=== PATIENT | female | born 1965 | race Caucasian/White ===

== ENCOUNTER → 2017-02-07 | Outpatient (CLI) | payer BC ==
--- NOTE | 2017-02-07 13:18 | US ---
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 EXAM MEASUREMENTS: Right Kidney: 11.2 x 5.7 x 4.4 cm Left Kidney: 12.0 x 5.0 x 5.3 cm Post Void Residual Volume: 8.2 mL Right Kidney: No masses seen; mildly prominent renal pelvis is noted at 1.2cm A/P. Left Kidney: No hydronephrosis or masses seen Bladder: wnl Bilateral Jets seen: only right ureteral jet was seen after 3 minute observation Normal Post Void Residual: Yes IMPRESSION: 1. Prominent extrarenal pelvis on the right with no overt hydronephrosis.
== END | disposition home or self-care (01) ==
LOC: RADUSWWP 12:12
PROVIDERS: ATTEND Family Medicine
DX: E10.22 Type 1 diabetes mellitus with diabetic chronic kidney disease (principal); N18.9 Chronic kidney disease, unspecified
CPT/HCPCS: 76770

== ENCOUNTER 2017-12-15 16:21 | Inpatient (IN) | payer BC ==
[2017-12-15] MEDS ORDERED: SODIUM CHLORIDE 0.9% 1,000 ML IV STA (18:51)
[2017-12-15] MEDS ORDERED: FAMOTIDINE 20 MG/2 ML VIAL IV STA (18:52)
--- NOTE | 2017-12-15 18:58 | ED ---
Recheck HPI - General Chief Complaint: Recheck/Abnormal Lab/Rx Stated Complaint: fatique,not felling rt Time Seen by Provider: 12/15/17 18:42 Source: patient Mode of arrival: ambulatory Limitations: no limitations - History of Present Illness Initial Comments: 52-year-old female patient presents to the emergency department today with multiple complaints. Patient states that she has been feeling unwell since Friday. Patient says her symptoms include fatigue, weakness, palpitations, heartburn, and dizziness. Patient states that yesterday she was standing for a long period peeling potatoes for dinner when she became very dizzy and felt like she was going to pass out. Patient states that she has been experiencing some chest discomfort and palpitations intermittently as well. Patient denies any nausea or vomiting. Denies any fevers or chills. Patient does have a history of diabetes but states that her sugars have not been out of the ordinary. States that she is unable to stand for short periods time before she becomes too fatigued. Patient states that she has been having some intermittent numbness to the left forearm. Denies any numbness, tingling, or weakness to her legs. Sates that she has been having headaches intermittently. She denies any blurred or double vision. Patient denies any recent rash, shortness breath, chest pain, abdominal pain, back pain, hematuria, dysuria, urinary urgency, or urinary frequency. Patient is concerned because heart disease and CVA run in her family. - Related Data Home Medications Medication Instructions Recorded Confirmed Atenolol/Chlorthalidone 1 tab PO DAILY 10/15/14 12/15/17 [Atenolol-Chlorthalidone 50-25] Insulin Lispro [humaLOG] 0 units SQ ACHS 10/15/14 10/15/14 Levothyroxine Sodium [Synthroid] 200 mcg PO DAILY 10/15/14 12/15/17 Ramipril [Altace] 10 mg PO BID 10/15/14 12/15/17 amLODIPine [Norvasc] 2.5 mg PO DAILY 10/15/14 12/15/17 Atorvastatin [Lipitor] 40 mg PO DAILY 12/15/17 12/15/17 Allergies Allergy/AdvReac Type Severity Reaction Status Date / Time No Known Allergies Allergy Verified 12/15/17 19:26 Review of Systems ROS Statement: Those systems with pertinent positive or pertinent negative responses have been documented in the HPI. ROS Other: All systems not noted in ROS Statement are negative. Past Medical History Past Medical History: Diabetes Mellitus, GERD/Reflux, Hyperlipidemia, Hypertension, Thyroid Disorder History of Any Multi-Drug Resistant Organisms: MRSA Date of last positivie culture/infection: 2001 MDRO Source:: unk Past Surgical History: Section, Hysterectomy, Orthopedic Surgery, Tubal Ligation Past Psychological History: No Psychological Hx Reported Smoking Status: Former smoker Past Alcohol Use History: Occasional Past Drug Use History: None Reported General Exam Limitations: no limitations General appearance: alert, in no apparent distress, other (This is a well- developed, well-nourished adult female patient in no acute distress. Vital signs upon presentation are temperature 97.7F, pulse 65, respirations 18, blood pressure 116/69, pulse ox 100% on room air.) Eye exam: Present: normal appearance, PERRL, EOMI. Absent: scleral icterus, conjunctival injection, nystagmus, periorbital swelling ENT exam: Present: normal exam, normal oropharynx, mucous membranes moist Respiratory exam: Present: normal lung sounds bilaterally. Absent: respiratory distress, wheezes, rales, rhonchi, stridor Cardiovascular Exam: Present: regular rate, normal rhythm, normal heart sounds. Absent: systolic murmur, diastolic murmur, rubs, gallop, clicks GI/Abdominal exam: Present: soft, normal bowel sounds. Absent: distended, tenderness, guarding, rebound, rigid Neurological exam: Present: alert, oriented X3, CN II-XII intact Psychiatric exam: Present: normal affect, normal mood Skin exam: Present: warm, dry, intact, normal color. Absent: rash Course Vital Signs 12/15/17 12/15/17 12/15/17 17:49 19:14 20:51 Temperature 97.7 F Pulse Rate 65 63 52 L Pulse Rate [ Right Sitting Hospital Nurse ] Pulse Rate [ Right Standing Hospital Nurse ] Pulse Rate [ Right Supine Hospital Nurse ] Respiratory 18 18 18 Rate Blood Pressure 116/69 134/63 143/97 Blood Pressure [Right Arm Sitting] Blood Pressure [Right Arm Standing] Blood Pressure [Right Arm Supine] O2 Sat by Pulse 100 100 98 Oximetry 12/15/17 20:55 Temperature Pulse Rate Pulse Rate [ 67 Right Sitting Hospital Nurse ] Pulse Rate [ 65 Right Standing Hospital Nurse ] Pulse Rate [ 64 Right Supine Hospital Nurse ] Respiratory Rate Blood Pressure Blood Pressure 131/70 [Right Arm Sitting] Blood Pressure 107/57 [Right Arm Standing] Blood Pressure 184/80 [Right Arm Supine] O2 Sat by Pulse Oximetry Medical Decision Making - Medical Decision Making 52-year-old female patient presented to the emergency department today for evaluation of weakness, fatigue, palpitations, and did have a near syncopal episode yesterday. The patient physical exam is unremarkable. She was neurologically intact. Labs reviewed and did reveal elevated BUN and creatinine , we are unaware of the patient's baseline, we did speak to her primary care physician who believes that her creatinine is more elevated than it usually is. While in the department patient did have bradycardic episodes down into the high 30s. Patient has a symptomatic at this time however given her symptoms over the last several days we feel it would be beneficial for her to have cardiac evaluation and monitoring. My attending Dr. Man did speak to her primary care physician Dr. Handy who agrees to admission. We will consult cardiology. - Lab Data Result diagrams: 12/15/17 18:59 12/15/17 18:59 Lab Results 12/15/17 12/15/17 12/15/17 Range/Units 18:59 18:59 18:59 WBC 8.5 (3.8-10.6) k/uL RBC 4.07 (3.80-5.40) m/uL Hgb 12.9 (11.4-16.0) gm/dL Hct 36.7 (34.0-46.0) % MCV 90.1 (80.0-100.0) fL MCH 31.7 (25.0-35.0) pg MCHC 35.2 (31.0-37.0) g/dL RDW 11.8 (11.5-15.5) % Plt Count 254 (150-450) k/uL Neutrophils % 66 % Lymphocytes % 25 % Monocytes % 5 % Eosinophils % 2 % Basophils % 1 % Neutrophils # 5.7 (1.3-7.7) k/uL Lymphocytes # 2.1 (1.0-4.8) k/uL Monocytes # 0.4 (0-1.0) k/uL Eosinophils # 0.2 (0-0.7) k/uL Basophils # 0.0 (0-0.2) k/uL PT (9.0-12.0) sec INR (<1.2) APTT (22.0-30.0) sec Sodium 137 (137-145) mmol/L Potassium 4.6 (3.5-5.1) mmol/L Chloride 99 (98-107) mmol/L Carbon Dioxide 24 (22-30) mmol/L Anion Gap 14 mmol/L BUN 64 H (7-17) mg/dL Creatinine 2.16 H (0.52-1.04) mg/dL Est GFR (CKD-EPI)AfAm 30 (>60 ml/min/1.73 sqM) Est GFR (CKD-EPI)NonAf 26 (>60 ml/min/1.73 sqM) Glucose 176 H (74-99) mg/dL Calcium 9.7 (8.4-10.2) mg/dL Magnesium 2.2 (1.6-2.3) mg/dL Total Bilirubin 0.3 (0.2-1.3) mg/dL AST 19 (14-36) U/L ALT 26 (9-52) U/L Alkaline Phosphatase 70 (38-126) U/L Total Creatine Kinase 123 (30-135) U/L CK-MB (CK-2) 5.1 H (0.0-2.4) ng/mL CK-MB (CK-2) Rel Index 4.1 Troponin I <0.012 (0.000-0.034) ng/mL Total Protein 7.2 (6.3-8.2) g/dL Albumin 4.0 (3.5-5.0) g/dL TSH 2.020 (0.465-4.680) mIU/L Urine Color Urine Appearance (Clear) Urine pH (5.0-8.0) Ur Specific [place] (1.001-1.035) Urine Protein (Negative) Urine Glucose (UA) (Negative) Urine Ketones (Negative) Urine Blood (Negative) Urine Nitrite (Negative) Urine Bilirubin (Negative) Urine Urobilinogen (<2.0) mg/dL Ur Leukocyte Esterase (Negative) Urine WBC (0-5) /hpf Ur Squamous Epith Cells (0-4) /hpf Urine Mucus (None) /hpf 12/15/17 12/15/17 Range/Units 18:59 18:59 WBC (3.8-10.6) k/uL RBC (3.80-5.40) m/uL Hgb (11.4-16.0) gm/dL Hct (34.0-46.0) % MCV (80.0-100.0) fL MCH (25.0-35.0) pg MCHC (31.0-37.0) g/dL RDW (11.5-15.5) % Plt Count (150-450) k/uL Neutrophils % % Lymphocytes % % Monocytes % % Eosinophils % % Basophils % % Neutrophils # (1.3-7.7) k/uL Lymphocytes # (1.0-4.8) k/uL Monocytes # (0-1.0) k/uL Eosinophils # (0-0.7) k/uL Basophils # (0-0.2) k/uL PT 9.4 (9.0-12.0) sec INR 0.9 (<1.2) APTT 22.3 (22.0-30.0) sec Sodium (137-145) mmol/L Potassium (3.5-5.1) mmol/L Chloride (98-107) mmol/L Carbon Dioxide (22-30) mmol/L Anion Gap mmol/L BUN (7-17) mg/dL Creatinine (0.52-1.04) mg/dL Est GFR (CKD-EPI)AfAm (>60 ml/min/1.73 sqM) Est GFR (CKD-EPI)NonAf (>60 ml/min/1.73 sqM) Glucose (74-99) mg/dL Calcium (8.4-10.2) mg/dL Magnesium (1.6-2.3) mg/dL Total Bilirubin (0.2-1.3) mg/dL AST (14-36) U/L ALT (9-52) U/L Alkaline Phosphatase (38-126) U/L Total Creatine Kinase (30-135) U/L CK-MB (CK-2) (0.0-2.4) ng/mL CK-MB (CK-2) Rel Index Troponin I (0.000-0.034) ng/mL Total Protein (6.3-8.2) g/dL Albumin (3.5-5.0) g/dL TSH (0.465-4.680) mIU/L Urine Color Light Yellow Urine Appearance Cloudy H (Clear) Urine pH 5.0 (5.0-8.0) Ur Specific [place] 1.007 (1.001-1.035) Urine Protein Negative (Negative) Urine Glucose (UA) Negative (Negative) Urine Ketones Negative (Negative) Urine Blood Negative (Negative) Urine Nitrite Negative (Negative) Urine Bilirubin Negative (Negative) Urine Urobilinogen <2.0 (<2.0) mg/dL Ur Leukocyte Esterase Negative (Negative) Urine WBC 1 (0-5) /hpf Ur Squamous Epith Cells 4 (0-4) /hpf Urine Mucus Rare H (None) /hpf - EKG Data -: EKG Interpreted by Me EKG Comments: EKG obtained at 1806 shows normal sinus rhythm with a ventricular rate of 64, MI interval 170, QRS duration 84, QT 438, QTC 451. No evidence of ST elevation or depression. - Radiology Data Radiology results: report reviewed, image reviewed Two-view x-ray of the chest was obtained. Heart media's enema normal. Lungs are clear. Diaphragm is normal. Bony thorax is intact. Impression by Dr. Ham shows normal chest with no change. Disposition Clinical Impression: Bradycardia, Acute kidney injury, Weakness Disposition: ADMITTED IP TO THIS [facility] Condition: Serious Referrals: Daryl Handy MD [Primary Care Provider] - 1-2 days Decision to Admit Reason: Admit from EC Decision Date: 12/15/17 Decision Time: 21:36
[2017-12-15 19:31] LABS: Basophils % (A) 1 %; Eosinophils # (A) 0.2 k/uL (0-0.7); Eosinophils % (A) 2 %; HCT 36.7 % (34.0-46.0); HGB 12.9 gm/dL (11.4-16.0); Lymphocytes # (A) 2.1 k/uL (1.0-4.8); Lymphocytes % (A) 25 %; MCH 31.7 pg (25.0-35.0); MCHC 35.2 g/dL (31.0-37.0); MCV 90.1 fL (80.0-100.0); Mean Platelet Volume 7.4; Monocytes # (A) 0.4 k/uL (0-1.0); Monocytes % (A) 5 %; Neutrophils # (A) 5.7 k/uL (1.3-7.7); Neutrophils % (A) 66 %; Platelet Count 254 k/uL (150-450); RBC 4.07 m/uL (3.80-5.40); RDW 11.8 % (11.5-15.5); WBC 8.5 k/uL (3.8-10.6)
[2017-12-15 19:33] LABS: Appearance,Urine Cloudy (Clear); Bilirubin,Urine Negative (Negative); Blood,Urine Negative (Negative); Color,Urine Light Yellow; Glucose,Urine (UA) Negative (Negative); Ketones,Urine Negative (Negative); Leukocyte Esterase,Urine Negative (Negative); Mucus,Urine Rare /hpf; Nitrite,Urine Negative (Negative); Protein,Urine Negative (Negative); Specific Gravity,Urine 1.007 (1.001-1.035); Squamous Epithelial Cell,Urine 4 /hpf (0-4); Urobilinogen,Urine <2.0 mg/dL (<2.0); WBC,Urine 1 /hpf (0-5)
[2017-12-15 19:38] LABS: Calcium 9.7 mg/dL (8.4-10.2); Magnesium 2.2 mg/dL (1.6-2.3); Potassium 4.6 mmol/L (3.5-5.1); Total Bilirubin 0.3 mg/dL (0.2-1.3); Total Protein 7.2 g/dL (6.3-8.2)
[2017-12-15 19:42] LABS: Creatine Kinase 123 U/L (30-135)
[2017-12-15 19:56] LABS: Creatine Kinase MB 5.1 ng/mL (0.0-2.4); Troponin I <0.012 ng/mL (0.000-0.034)
--- NOTE | 2017-12-15 19:58 | XR ---
EXAMINATION TYPE: XR chest 2V DATE OF EXAM: 12/15/2017 COMPARISON: 01/31/2009 HISTORY: Chest pain TECHNIQUE: Frontal and lateral views of the chest are obtained. FINDINGS: Heart and mediastinum are normal. Lungs are clear. Diaphragm is normal. Bony thorax is int act. IMPRESSION: Normal chest. No change.
[2017-12-15 20:02] LABS: INR 0.9 (<1.2); Partial Thromboplastin Time 22.3 sec (22.0-30.0); Prothrombin Time 9.4 sec (9.0-12.0)
[2017-12-15] MEDS ORDERED: NALOXONE 0.4 MG/ML 1 ML VIAL IV PRN (21:24)
[2017-12-15] MEDS: SODIUM CHLORIDE 0.9% 1,000 ML IV SCH (21:56)
[2017-12-15 22:55] LABS: Glucose,Whole Blood 231 mg/dL (75-99)
[2017-12-16 06:03] LABS: Basophils % (A) 0 %; Eosinophils # (A) 0.1 k/uL (0-0.7); Eosinophils % (A) 3 %; HCT 34.4 % (34.0-46.0); HGB 11.3 gm/dL (11.4-16.0); Lymphocytes # (A) 1.6 k/uL (1.0-4.8); Lymphocytes % (A) 29 %; MCH 30.7 pg (25.0-35.0); MCV 92.8 fL (80.0-100.0); Mean Platelet Volume 7.2; Monocytes # (A) 0.3 k/uL (0-1.0); Monocytes % (A) 5 %; Neutrophils # (A) 3.4 k/uL (1.3-7.7); Neutrophils % (A) 61 %; Platelet Count 214 k/uL (150-450); WBC 5.6 k/uL (3.8-10.6)
[2017-12-16 06:09] LABS: Glucose,Whole Blood 386 mg/dL (75-99)
[2017-12-16 06:12] LABS: Calcium 8.9 mg/dL (8.4-10.2); Potassium 4.7 mmol/L (3.5-5.1)
--- NOTE | 2017-12-16 09:22 | P.HPIM ---
History of Present Illness 52-year-old female diabetic presented to the emergency room with complaints of fatigue neck pain chest pain speech impediment left arm weakness nurse syncopal episode with left leg weakness. In the emergency room patient was found to have bradycardia down to rate 30. Patient also has history of hypertension and hyperlipidemia hypothyroidism Review of Systems Constitutional: Reports fatigue, Reports weakness Cardiovascular: Reports chest pain Gastrointestinal: Reports heartburn Musculoskeletal: Reports muscle weakness, Reports neck pain Neurological: Reports change in speech, Reports gait dysfunction, Reports tingling, Reports weakness Past Medical History Past Medical History: Diabetes Mellitus, GERD/Reflux, Hyperlipidemia, Hypertension, Thyroid Disorder History of Any Multi-Drug Resistant Organisms: MRSA Date of last positivie culture/infection: 2001 MDRO Source:: unk Past Surgical History: Section, Hysterectomy, Orthopedic Surgery, Tubal Ligation Past Psychological History: No Psychological Hx Reported Smoking Status: Former smoker Past Alcohol Use History: Occasional Past Drug Use History: None Reported - Past Family History Mother Family Medical History: Myocardial Infarction ([place]) Father Family Medical History: Myocardial Infarction ([place]) Medications and Allergies Home Medications Medication Instructions Recorded Confirmed Type Atenolol/Chlorthalidone 1 tab PO DAILY 10/15/14 12/15/17 History [Atenolol-Chlorthalidone 50-25] Insulin Lispro [humaLOG] 0 units SQ ACHS 10/15/14 10/15/14 History Levothyroxine Sodium [Synthroid] 200 mcg PO DAILY 10/15/14 12/15/17 History Ramipril [Altace] 10 mg PO BID 10/15/14 12/15/17 History amLODIPine [Norvasc] 2.5 mg PO DAILY 10/15/14 12/15/17 History Atorvastatin [Lipitor] 40 mg PO DAILY 12/15/17 12/15/17 History Allergies Allergy/AdvReac Type Severity Reaction Status Date / Time No Known Allergies Allergy Verified 12/15/17 19:26 Physical Exam Vitals: Vital Signs Temp Pulse Pulse Pulse Pulse Resp BP 12/16/17 04:00 97.6 F 73 18 12/16/17 00:00 97.8 F 62 71 18 12/15/17 21:55 97.2 F L 69 18 12/15/17 21:37 68 18 117/59 12/15/17 20:55 67 65 64 09/24/18 20:51 52 L 18 143/97 12/15/17 19:14 63 18 134/63 12/15/17 17:49 97.7 F 65 18 116/69 BP BP BP Pulse Ox 12/16/17 04:00 131/65 98 12/16/17 00:00 112/75 97 12/15/17 21:55 152/79 98 12/15/17 21:37 100 12/15/17 20:55 131/70 107/57 184/80 12/15/17 20:51 98 12/15/17 19:14 100 12/15/17 17:49 100 Intake and Output 12/15/17 12/16/17 12/16/17 22:59 06:59 14:59 Intake Total 750 Balance 750 Intake: Intake, IV Titration 750 Amount Sodium Chloride 0.9% 1, 750 000 ml @ 75 mls/hr IV . [id number] [facility] Rx#:[id number] Other: # Voids 1 Weight 90.256 kg 89.8 kg - Constitutional General appearance: mild distress - EENT Eyes: PERRLA ENT: normal oropharynx Ears: bilateral: normal - Neck Neck: normal ROM - Respiratory Respiratory: bilateral: CTA - Cardiovascular Rhythm: regular - Gastrointestinal General gastrointestinal: soft - Integumentary Integumentary: normal - Neurologic Neurologic: CNII-XII intact - Musculoskeletal Musculoskeletal: strength equal bilaterally - Psychiatric Psychiatric: A&O x's 3, appropriate affect, intact judgment & insight Results CBC & Chem 7: 12/16/17 05:39 12/16/17 05:39 Labs: Abnormal Lab Results - Last 24 Hours (Table) 12/15/17 12/15/17 12/15/17 Range/Units 18:59 18:59 18:59 RBC (3.80-5.40) m/uL Hgb (11.4-16.0) gm/dL Sodium (137-145) mmol/L BUN 64 H (7-17) mg/dL Creatinine 2.16 H (0.52-1.04) mg/dL Glucose 176 H (74-99) mg/dL POC Glucose (mg/dL) (75-99) mg/dL CK-MB (CK-2) 5.1 H (0.0-2.4) ng/mL Urine Appearance Cloudy H (Clear) Urine Mucus Rare H (None) /hpf 12/15/17 12/16/17 12/16/17 Range/Units 22:53 05:39 05:39 RBC 3.70 L (3.80-5.40) m/uL Hgb 11.3 L (11.4-16.0) gm/dL Sodium 134 L (137-145) mmol/L BUN 53 H (7-17) mg/dL Creatinine 1.49 H (0.52-1.04) mg/dL Glucose 341 H (74-99) mg/dL POC Glucose (mg/dL) 231 H (75-99) mg/dL CK-MB (CK-2) (0.0-2.4) ng/mL Urine Appearance (Clear) Urine Mucus (None) /hpf 12/16/17 Range/Units 06:07 RBC (3.80-5.40) m/uL Hgb (11.4-16.0) gm/dL Sodium (137-145) mmol/L BUN (7-17) mg/dL Creatinine (0.52-1.04) mg/dL Glucose (74-99) mg/dL POC Glucose (mg/dL) 386 H (75-99) mg/dL CK-MB (CK-2) (0.0-2.4) ng/mL Urine Appearance (Clear) Urine Mucus (None) /hpf Chest x-ray: report reviewed Thrombosis Risk Factor Assmnt - Choose All That Apply Each Factor Represents 1 point: Age 41-60 years, Obesity (BMI >25) Other congenital or acquired thrombophilia - If yes, enter type in comment: No Thrombosis Risk Factor Assessment Total Risk Factor Score: 2 Thrombosis Risk Factor Assessment Level: Low Risk Assessment and Plan Plan: Assessment Diabetes on insulin pump Bradycardia rate down to 30 Acute kidney injury improving Left arm leg weakness TIA Hypertension hyperlipidemia GERD Plan Consultation with cardiology for bradycardia Dr. Beebe for acute kidney injury Neurology for possible TIA CT of the brain ordered
[2017-12-16] MEDS ORDERED: INSULIN PUMP BASAL RATES 1 EACH MISC MISCELLANE PRN (09:43)
[2017-12-16] MEDS ORDERED: INSULIN ASPART 100 UNIT/ML 1 ML 10 ML VIAL SQ PRN (09:43)
[2017-12-16] MEDS ORDERED: INSPUCOR MISCELLANE PRN (09:43)
[2017-12-16] MEDS ORDERED: INSULIN PUMP TARGET GLUCOSE 1 EACH MISC MISCELLANE PRN (09:43)
[2017-12-16] MEDS ORDERED: INSULIN PUMP ACTIVE INSULIN 1 EACH MISC MISCELLANE PRN (09:43)
[2017-12-16] MEDS ORDERED: CHLORTHALIDONE 25 MG TAB PO SCH (10:00)
[2017-12-16] MEDS: SODIUM CHLORIDE 0.9% 1,000 ML IV SCH (10:22)
--- NOTE | 2017-12-16 10:33 | P.NPCON ---
History of Present Illness - Reason for Consult acute renal failure - History of Present Illness Reason for consultation: Acute kidney injury History of present illness: Patient is a 52-year-old female seen in consultation for acute kidney injury. Her creatinine was 2.16 on admission and is on the 1.49 today. She did receive a 1 L normal saline bolus and is now maintained on normal saline at 75 mL an hour. Vision denies use of NSAIDs. Patient states she was at home yesterday cooking food and felt weak and dizzy. She also had palpitations which prompted her to come to the hospital. Patient has history of diabetes mellitus diagnosed over 30 years ago. She was also taking an SHAYY inhibitor, beta luis as well as a thiazide diuretic for blood pressure control. She denies any vomiting or diarrhea. No edema. Denies any history of cardiac disease. Oral intake is good. Denies any active chest pain or shortness of breath. Urinalysis is benign. No fever or chills. Denies edema. Denies family history of renal disease. Vital signs are stable. General: The patient appeared well nourished and normally developed. HEENT: Head exam is unremarkable. Neck is without jugular venous distension. LUNGS: Lungs are clear to auscultation and percussion. Breath sounds decreased. HEART: Rate and Rhythm are regular. First and second heart sounds normal. No murmurs, rubs or gallops. ABDOMEN: Abdominal exam reveals normal bowel sounds. Non-tender and non- distended. No evidence of peritonitis. EXTREMITITES: No clubbing, cyanosis, or edema. Past Medical History Past Medical History: Diabetes Mellitus, GERD/Reflux, Hyperlipidemia, Hypertension, Thyroid Disorder History of Any Multi-Drug Resistant Organisms: MRSA Date of last positivie culture/infection: 2001 MDRO Source:: k Past Surgical History: Section, Hysterectomy, Orthopedic Surgery, Tubal Ligation Past Psychological History: No Psychological Hx Reported Smoking Status: Former smoker Past Alcohol Use History: Occasional Past Drug Use History: None Reported - Past Family History Mother Family Medical History: Myocardial Infarction ([place]) Father Family Medical History: Myocardial Infarction ([place]) Medications and Allergies Home Medications Medication Instructions Recorded Confirmed Type Atenolol/Chlorthalidone 1 tab PO DAILY 10/15/14 12/15/17 History [Atenolol-Chlorthalidone 50-25] Insulin Lispro [humaLOG] 0 units SQ ACHS 10/15/14 10/15/14 History Levothyroxine Sodium [Synthroid] 200 mcg PO DAILY 10/15/14 12/15/17 History Ramipril [Altace] 10 mg PO BID 10/15/14 12/15/17 History amLODIPine [Norvasc] 2.5 mg PO DAILY 10/15/14 12/15/17 History Atorvastatin [Lipitor] 40 mg PO DAILY 12/15/17 12/15/17 History Allergies Allergy/AdvReac Type Severity Reaction Status Date / Time No Known Allergies Allergy Verified 12/15/17 19:26 Physical Exam Vitals: Vital Signs Temp Pulse Pulse Pulse Pulse Resp BP 12/16/17 04:00 97.6 F 73 18 12/16/17 00:00 97.8 F 62 71 18 12/15/17 21:55 97.2 F L 69 18 12/15/17 21:37 68 18 117/59 12/15/17 20:55 67 65 64 12/15/17 20:51 52 L 18 143/97 12/15/17 19:14 63 18 134/63 12/15/17 17:49 97.7 F 65 18 116/69 BP BP BP Pulse Ox 12/16/17 04:00 131/65 98 12/16/17 00:00 112/75 97 12/15/17 21:55 152/79 98 12/15/17 21:37 100 12/15/17 20:55 131/70 107/57 184/80 12/15/17 20:51 98 12/15/17 19:14 100 12/15/17 17:49 100 Intake and Output 12/15/17 12/16/17 12/16/17 22:59 06:59 14:59 Intake Total 750 Balance 750 Intake: Intake, IV Titration 750 Amount Sodium Chloride 0.9% 1, 750 000 ml @ 75 mls/hr IV . [id number] [facility] Rx#:[id number] Other: # Voids 1 Weight 90.256 kg 89.8 kg Results - Lab Results Most recent lab results Calcium 8.9 mg/dL (8.4-10.2) 12/16/17 05:39 Magnesium 2.2 mg/dL (1.6-2.3) 12/15/17 18:59 12/16/17 05:39 12/16/17 05:39 Assessment and Plan Plan: Assessment: 1. Nonoliguric acute kidney injury mostly prerenal improving with IV hydration. Creatinine was 2.16 on admission and is down to 1.49 today. Urinalysis is benign. 2. Benign hypertension. Controlled. 3. Insulin-dependent diabetes mellitus diagnosed over 30 years ago. 4. Mild hyponatremia secondary to acute kidney injury and thiazide diuretic. Plan: Continue normal saline at 75 mL an hour. Hold chlorthalidone and SHAYY inhibitor for now. Encouraged oral intake. Avoid nephrotoxins. Repeat electrolytes in the morning. Patient complained of lower extremity numbness on admission and is scheduled for CAT scan today. Thank you for the consultation. I will continue to follow the patient with you during her hospital stay.
[2017-12-16 10:41] LABS: Glucose,Whole Blood 419 mg/dL (75-99)
--- NOTE | 2017-12-16 11:03 | CT ---
EXAMINATION TYPE: CT brain cspine wo con DATE OF EXAM: 12/16/2017 COMPARISON: CT brain November 23, 2014 HISTORY: Left arm weakness. Syncope. CT DLP: 1603 mGycm. Automated Exposure Control for Dose Reduction was Utilized. TECHNIQUE: CT scan of the head and cervical spine are performed without contrast. FINDINGS: There is no acute intracranial hemorrhage, mass effect, or midline shift identified. The ventricles and sulci are within normal limits in size. Kaur-white matter differentiation is maintai randal. The globes are intact and the visualized sinuses are clear. Nasal septum remains deviated to lef t of midline. No suspicious new opacification of mastoid air cells is seen. Cervical spine is visualized in its entirety from C1 through upper thoracic levels and demonstrates s traightened alignment without evidence of acute fracture or dislocation. Prevertebral soft tissue ap pears within normal limits. The C1-C2 articulation is within normal limits on the coronal images. V ertebral body heights and disc space heights are maintained. No large posterior disc herniations are seen on sagittal images. Review of axial images shows right-sided uncovertebral facet degenerative changes causing mild right- sided neural foraminal narrowing at C3-C4 level. There is small posterior disc herniation mildly effa cing anterior thecal sac at C5-C6 level on axial image 48. Lung apices are clear. Visualized thyroid gland is small in size. IMPRESSION: 1. Straightening of cervical spine without large disc herniation seen to account for left arm weaknes s. 2. No acute intracranial hemorrhage or midline shift is seen. No significant change from prior CT.
[2017-12-16 11:48] LABS: Glucose,Whole Blood 469 mg/dL (75-99)
[2017-12-16] MEDS: LEVOTHYROXINE 100 MCG TAB PO SCH (12:58)
[2017-12-16] MEDS: ATENOLOL 50 MG TAB PO SCH (12:59)
[2017-12-16] MEDS: amLODIPine 2.5 MG TAB PO SCH (12:59)
[2017-12-16] MEDS: INSULIN PUMP MEAL BOLUS 1 UNIT MISC MISCELLANE SCH ×3 (13:01→21:54)
[2017-12-16] MEDS: INSULIN ASPART 100 UNIT/ML 1 ML 10 ML VIAL SQ SCH ×2 (13:47→17:11)
--- NOTE | 2017-12-16 14:08 | P.CRDCN ---
<Ayanna Andrews E - Last Filed: 12/16/17 13:54> History of Present Illness Consult date: 12/16/17 Requesting physician: Daryl Handy Consult reason: chest pain Chief complaint: Fatigue, dizziness, heartburn History of present illness: This is a pleasant 52-year-old female with history of diabetes, hypertension, hyperlipidemia, hypothyroidism, prior history of smoking, who presented to the hospital mainly with symptoms of fatigue, dizziness, and intermittent heartburn. Patient states since Friday of last week she generally has not been feeling well. She has been getting repeated symptoms of heartburn unrelieved with medication that she takes occasionally for heartburn, she's also been getting symptoms where she feels extremely fatigued, in her arms in general, and patient states she's been experiencing intermittent dizziness. For these reasons, because of its persistence she came to the hospital for further evaluation. Blood pressure on arrival here 116/60 with a heart rate in the 60s, 100% on room air. Orthostatic blood pressures were obtained, 184/80 lying, 130/70 sitting, 107/57 standing, patient is afebrile, blood pressure currently 130/60, 98% on room air. White blood cell count is normal, hemoglobin 11.3, platelet count 214. Sodium 134, potassium 4.7, BUN 53, creatinine 1.4 BUN on admission was 64 and creatinine 2.1. Glucose levels have also been fluctuating, 231 yesterday, 469 today. Troponin is negative times one. According to the patient, she has been drinking significant amount of water at home, she denies any use of nonsteroidal anti-inflammatories, no episodes of diarrhea or vomiting. She is known to have issues with her kidneys in the past. Patient was also on chlorthalidone an SHAYY inhibitor at home. These have been placed on hold. Patient was hydrated, and her kidney function improved. Overall she does state that she feels better today. Past Medical History Past Medical History: Diabetes Mellitus, GERD/Reflux, Hyperlipidemia, Hypertension, Thyroid Disorder History of Any Multi-Drug Resistant Organisms: MRSA Date of last positivie culture/infection: 2001 MDRO Source:: unk Past Surgical History: Section, Hysterectomy, Orthopedic Surgery, Tubal Ligation Past Psychological History: No Psychological Hx Reported Smoking Status: Former smoker Past Alcohol Use History: Occasional Past Drug Use History: None Reported - Past Family History Mother Family Medical History: Myocardial Infarction ([place]) Father Family Medical History: Myocardial Infarction ([place]) Medications and Allergies Home Medications Medication Instructions Recorded Confirmed Type Atenolol/Chlorthalidone 1 tab PO DAILY 10/15/14 12/15/17 History [Atenolol-Chlorthalidone 50-25] Insulin Lispro [humaLOG] 0 units SQ ACHS 10/15/14 10/15/14 History Levothyroxine Sodium [Synthroid] 200 mcg PO DAILY 10/15/14 12/15/17 History Ramipril [Altace] 10 mg PO BID 10/15/14 12/15/17 History amLODIPine [Norvasc] 2.5 mg PO DAILY 10/15/14 12/15/17 History Atorvastatin [Lipitor] 40 mg PO DAILY 12/15/17 12/15/17 History Allergies Allergy/AdvReac Type Severity Reaction Status Date / Time No Known Allergies Allergy Verified 12/15/17 19:26 Physical Exam Vitals: Vital Signs Temp Pulse Pulse Pulse Pulse Resp BP 12/16/17 04:00 97.6 F 73 18 12/16/17 00:00 97.8 F 62 71 18 12/15/17 21:55 97.2 F L 69 18 12/15/17 21:37 68 18 117/59 12/15/17 20:55 67 65 64 12/15/17 20:51 52 L 18 143/97 12/15/17 19:14 63 18 134/63 12/15/17 17:49 97.7 F 65 18 116/69 BP BP BP Pulse Ox 12/16/17 04:00 131/65 98 12/16/17 00:00 112/75 97 12/15/17 21:55 152/79 98 12/15/17 21:37 100 12/15/17 20:55 131/70 107/57 184/80 12/15/17 20:51 98 12/15/17 19:14 100 12/15/17 17:49 100 Intake and Output 12/15/17 12/16/17 12/16/17 22:59 06:59 14:59 Intake Total 750 450 Balance 750 450 Intake: Intake, IV Titration 750 450 Amount Sodium Chloride 0.9% 1, 750 450 000 ml @ 75 mls/hr IV . [id number] [facility] Rx#:[id number] Other: # Voids 1 Weight 90.256 kg 89.8 kg PHYSICAL EXAMINATION: GENERAL: 52-year-old female in no acute distress at the time of my examination HEENT: Head is atraumatic, normocephalic. Pupils equal, round. Sclera anicteric. Conjunctiva are clear. Mucous membranes of the mouth are moist. Neck is supple. There is no elevated jugular venous pressure. No carotid bruit is heard. HEART EXAMINATION: Heart S1, S2 normal. No murmur or gallop heard. CHEST EXAMINATION: Lungs are clear to auscultation and precussion. No chest wall tenderness is noted on palpation or with deep breathing. ABDOMEN: Soft, nontender. Bowel sounds are heard. No organomegaly noted. EXTREMITIES: 2+ peripheral pulses with no evidence of peripheral edema and no calf tenderness noted. NEUROLOGIC patient is awake, alert and oriented ?-3. . Results 12/16/17 05:39 12/16/17 05:39 Cardiac Enzymes 12/15/17 12/15/17 Range/Units 18:59 18:59 AST 19 (14-36) U/L CK-MB (CK-2) 5.1 H (0.0-2.4) ng/mL Troponin I <0.012 (0.000-0.034) ng/mL Coagulation 12/15/17 Range/Units 18:59 PT 9.4 (9.0-12.0) sec APTT 22.3 (22.0-30.0) sec CBC 12/15/17 12/16/17 Range/Units 18:59 05:39 WBC 8.5 5.6 (3.8-10.6) k/uL RBC 4.07 3.70 L (3.80-5.40) m/uL Hgb 12.9 11.3 L (11.4-16.0) gm/dL Hct 36.7 34.4 (34.0-46.0) % Plt Count 254 214 (150-450) k/uL Comprehensive Metabolic Panel 12/15/17 12/16/17 Range/Units 18:59 05:39 Sodium 137 134 L (137-145) mmol/L Potassium 4.6 4.7 (3.5-5.1) mmol/L Chloride 99 103 (98-107) mmol/L Carbon Dioxide 24 22 (22-30) mmol/L BUN 64 H 53 H (7-17) mg/dL Creatinine 2.16 H 1.49 H (0.52-1.04) mg/dL Glucose 176 H 341 H (74-99) mg/dL Calcium 9.7 8.9 (8.4-10.2) mg/dL AST 19 (14-36) U/L ALT 26 (9-52) U/L Alkaline Phosphatase 70 (38-126) U/L Total Protein 7.2 (6.3-8.2) g/dL Albumin 4.0 (3.5-5.0) g/dL Current Medications Generic Name Dose Route Start Last Admin Trade Name Freq PRN Reason Stop Dose Admin Amlodipine Besylate 2.5 mg 12/16/17 09:30 12/16/17 12:59 Norvasc PO 2.5 mg DAILY [facility] Administration Atenolol 50 mg 12/16/17 10:00 12/16/17 12:59 Tenormin PO 50 mg DAILY [facility] Administration Sodium Chloride 1,000 mls @ 75 mls/hr 12/15/17 21:30 12/16/17 10:22 Saline 0.9% IV 75 mls/hr .[id number] [facility] Administration Insulin Aspart 0 unit 12/16/17 09:43 Novolog SQ DAILY PRN Insulin Pump Replacement Insulin Aspart 0 unit 12/16/17 14:00 Novolog SQ ACHS [facility] Protocol Levothyroxine Sodium 200 mcg 12/16/17 10:00 12/16/17 12:58 Synthroid PO 200 mcg 0630 [facility] Administration Miscellaneous Information 1 each 12/16/17 09:43 Insulin Pump Active Insulin MISCELLANE ACHS PRN Blood Sugar - High Protocol Miscellaneous Information 1 each 12/16/17 09:43 Insulin Pump Basal Rates MISCELLANE Q6HR PRN Blood Sugar - High Protocol Miscellaneous Information 0 unit 12/16/17 09:43 Insulin Pump Correction Bolus MISCELLANE ACHS PRN Blood Sugar - High Protocol Miscellaneous Information 0 unit 12/16/17 12:30 12/16/17 13:01 Insulin Pump Meal Bolus MISCELLANE 8 unit ACHS [facility] Administration Protocol Miscellaneous Information 1 each 12/16/17 09:43 Insulin Pump Target Glucose MISCELLANE ACHS PRN Blood Sugar - High Protocol Naloxone HCl 0.2 mg 12/15/17 21:24 Narcan IV Q2M PRN Opioid Reversal Intake and Output 12/15/17 12/16/17 12/16/17 22:59 06:59 14:59 Intake Total 750 450 Balance 750 450 Intake: Intake, IV Titration 750 450 Amount Sodium Chloride 0.9% 1, 750 450 000 ml @ 75 mls/hr IV . [id number] [facility] Rx#:[id number] Other: # Voids 1 Weight 90.256 kg 89.8 kg 12/16/17 05:39 12/16/17 05:39 EKG Interpretations (text) EKG shows a normal sinus rhythm with no acute changes. Assessment and Plan Plan: Assessment and plan #1 symptoms of generalized malaise, fatigue, and intermittent heartburn. One troponin is negative. EKG shows normal sinus rhythm with no acute changes. #2 non-oliguric acute kidney injury, improving with IV hydration, creatinine 2.1 on admission, 1.4 today. #3 diabetes #4 hyperlipidemia #5 mild hyponatremia secondary to acute kidney injury Plan We will obtain an echocardiogram with Doppler study. Continue normal saline at 75 mL per hour. Chlorthalidone and SHAYY inhibitor continue to be on hold. We will avoid nephrotoxins. Patient is also been recommended to undergo a Lexiscan stress test tomorrow because of the symptoms of intermittent burning in the chest. Further recommendations to follow. DNP note has been reviewed, I agree with a documented findings and plan of care. Patient was seen and examined. <Fransisco Wells - Last Filed: 12/17/17 12:41> History of Present Illness History of present illness: Patient interviewed and examined by me Patient complaining of midsternal chest discomfort with radiation down the left forearm and a vague sensation in the tongue This occurred in the setting of acute worsening of renal function/uremia No pericardial rub Renal function improving Diabetic for 30 years on insulin, hypertension, strong family history of coronary artery disease in the female members of her family at an early age No evidence for acute myocardial injury I would hold off any stress testing stating today. I have asked her to ambulate in the hallways to see if this provokes any exertional angina. I plan to perform a stress test tomorrow to look for any underlying ischemia. I hope I don't find any ischemia and we're able to treat her medically only because exposure to IV dye will result in a repeat worsening of renal function and may precipitate the need for either temporary or permanent dialysis she's had acute on chronic worsening of renal function in the past. The patient and her family members understand these risks. I explained the need for a cardiac workup versus the risk of renal injury to them. Physical Exam Vitals: Vital Signs Temp Pulse Pulse Pulse Pulse Resp BP 12/17/17 11:55 97.7 F 73 67 62 74 16 12/17/17 07:54 97.5 F L 73 67 68 74 16 12/17/17 04:00 97.7 F 67 18 12/17/17 00:00 97.9 F 74 74 17 189/83 12/16/17 20:04 69 16 12/16/17 19:40 97.6 F 69 16 138/66 12/16/17 16:00 98.3 F 73 18 145/68 BP BP Pulse Ox 12/17/17 11:55 133/59 98 12/17/17 07:54 108/52 98 12/17/17 04:00 119/67 99 12/17/17 00:00 98 12/16/17 20:04 12/16/17 19:40 99 12/16/17 16:00 98 Intake and Output 12/16/17 12/17/17 12/17/17 22:59 06:59 14:59 Intake Total 240 Output Total 500 Balance 240 -500 Intake: Oral 240 Output: Urine 500 Other: # Voids 1 Weight 90.4 kg Results 12/16/17 05:39 12/17/17 06:42 Cardiac Enzymes 12/17/17 Range/Units 06:42 Troponin I <0.012 (0.000-0.034) ng/mL Comprehensive Metabolic Panel 12/17/17 Range/Units 06:42 Sodium 141 (137-145) mmol/L Potassium 4.2 (3.5-5.1) mmol/L Chloride 111 H (98-107) mmol/L Carbon Dioxide 24 (22-30) mmol/L BUN 42 H (7-17) mg/dL Creatinine 1.31 H (0.52-1.04) mg/dL Glucose 125 H (74-99) mg/dL Calcium 8.6 (8.4-10.2) mg/dL Current Medications Generic Name Dose Route Start Last Admin Trade Name Corin PRN Reason Stop Dose Admin Amlodipine Besylate 2.5 mg 12/16/17 09:30 12/17/17 09:19 Norvasc PO 2.5 mg DAILY [facility] Administration Atenolol 50 mg 12/16/17 10:00 12/17/17 09:19 Tenormin PO 50 mg DAILY [facility] Administration Atorvastatin Calcium 40 mg 12/17/17 09:00 12/17/17 09:20 Lipitor PO 40 mg DAILY [facility] Administration Caffeine Citrate 60 mg 12/17/17 09:00 Cafcit Inj IV 12/17/17 23:00 ONCE PRN Patient Response Insulin Aspart 0 unit 12/16/17 09:43 Novolog SQ DAILY PRN Insulin Pump Replacement Levothyroxine Sodium 200 mcg 12/16/17 10:00 12/17/17 09:19 Synthroid PO 200 mcg 0630 [facility] Administration Miscellaneous Information 1 each 12/16/17 09:43 Insulin Pump Active Insulin MISCELLANE ACHS PRN Blood Sugar - High Protocol Miscellaneous Information 1 each 12/16/17 09:43 Insulin Pump Basal Rates MISCELLANE Q6HR PRN Blood Sugar - High Protocol Miscellaneous Information 0 unit 12/16/17 09:43 Insulin Pump Correction Bolus MISCELLANE ACHS PRN Blood Sugar - High Protocol Miscellaneous Information 0 unit 12/16/17 12:30 12/17/17 10:46 Insulin Pump Meal Bolus MISCELLANE Not Given ACHS [facility] Protocol Miscellaneous Information 1 each 12/16/17 09:43 Insulin Pump Target Glucose MISCELLANE ACHS PRN Blood Sugar - High Protocol Naloxone HCl 0.2 mg 12/15/17 21:24 Narcan IV Q2M PRN Opioid Reversal Temazepam 15 mg 12/16/17 23:36 12/17/17 00:14 Restoril PO 15 mg HS PRN Administration Insomnia Intake and Output 12/16/17 12/17/17 12/17/17 22:59 06:59 14:59 Intake Total 240 Output Total 500 Balance 240 -500 Intake: Oral 240 Output: Urine 500 Other: # Voids 1 Weight 90.4 kg 12/16/17 05:39 12/17/17 06:42
[2017-12-16 16:42] LABS: Glucose,Whole Blood 510 mg/dL (75-99)
[2017-12-16 20:49] LABS: Glucose,Whole Blood 274 mg/dL (75-99)
[2017-12-17] MEDS: TEMAZEPAM 15 MG CAP PO PRN ×2 (00:14→23:17)
[2017-12-17 05:49] LABS: Glucose,Whole Blood 155 mg/dL (75-99)
[2017-12-17] MEDS: SODIUM CHLORIDE 0.9% 1,000 ML IV SCH (06:26)
[2017-12-17 07:28] LABS: Calcium 8.6 mg/dL (8.4-10.2); Magnesium 1.9 mg/dL (1.6-2.3); Potassium 4.2 mmol/L (3.5-5.1)
[2017-12-17] MEDS ORDERED: NON-FORMULARY DRUG (Atenolol/Chlorthalidone [Atenolol-Chlorthalidone 50-25] 1 TAB) PO SCH (09:00)
[2017-12-17] MEDS ORDERED: REGADENOSON 0.4 MG/5 ML SYRINGE IV ONE (09:00)
[2017-12-17] MEDS ORDERED: CAFFEINE CITRATE 60 MG/3 ML VIAL IV PRN (09:00)
[2017-12-17] MEDS: amLODIPine 2.5 MG TAB PO SCH (09:19)
[2017-12-17] MEDS: LEVOTHYROXINE 100 MCG TAB PO SCH (09:19)
[2017-12-17] MEDS: ATENOLOL 50 MG TAB PO SCH (09:19)
[2017-12-17] MEDS: ATORVASTATIN 40 MG TAB PO SCH (09:20)
--- NOTE | 2017-12-17 09:42 | CONS ---
CONSULTATION DATE OF CONSULTATION: 12/16/2017 CHIEF COMPLAINT: Dizziness/presyncopal spell. HISTORY OF PRESENT ILLNESS: Mrs. Gutiérrez is a pleasant 52-year-old, female who is being evaluated today on 12/16/2017 by the Neurology Service per the request of Dr. Daryl Handy for a presyncopal episode. The patient states that she had not been feeling well over the past few days with symptoms of fatigue and dizziness. She denies any fevers, nausea, vomiting, or diarrhea. Yesterday, she had a severe episode of lightheadedness that made her almost pass out. She denies any loss of consciousness. She was brought into [facility] Emergency room for further workup and management. A CT scan of the brain was done, which showed no acute intracranial abnormalities. A CT scan of the cervical spine was done which showed a small disc herniation at C5-6. She does complain of chronic neck pain. Her CBC showed mild anemia with a hemoglobin of 11.3. Her cardiac enzymes were negative and urinalysis was normal. Her basic metabolic profile showed significant renal insufficiency with a BUN of 64 and creatinine of 2.16. She was started on IV hydration and admitted for further management. A repeat basic metabolic profile after IV hydration showed mild improvement with a BUN of 53 and creatinine of 1.49. Nephrology is following the patient. Cardiology has also been consulted. Regarding her neck pain, she states that this does radiate to bilateral proximal upper extremities. She rates her neck pain at 5/10 in intensity at the time of my evaluation, which is her usual chronic pain. PAST MEDICAL HISTORY: Diabetes, hypothyroidism, hypertension, dyslipidemia, gastroesophageal reflux disease, chronic neck pain, history of , hysterectomy, tubal ligation, orthopedic surgeries. SOCIAL HISTORY: The patient is a former smoker. She occasionally drinks alcohol. She denies any drug use. FAMILY HISTORY: Noncontributory. HOME MEDICATIONS: Reviewed in the chart. ALLERGIES: No known drug allergies. REVIEW OF SYSTEMS: As mentioned above and otherwise negative. PHYSICAL EXAM: Vital signs show a temperature of 98.3, pulse 73, respiration 18, blood pressure 145/68. GENERAL APPEARANCE: The patient is a well-developed female, who appears to be in no acute distress. HEENT: Normocephalic, atraumatic, no facial asymmetry is seen. NECK: Supple with no masses felt. CARDIOVASCULAR: Regular rate and rhythm. ABDOMEN: Nontender, nondistended. Extremities showed no edema or clubbing. NEUROLOGICAL EXAM: The patient is awake and oriented x3. Speech and language are normal. Strength is full in all 4 extremities. Sensory exam was normal to light touch in all 4 extremities. No tremors or seizure-like activity is seen. No facial asymmetry is seen on cranial nerve testing. IMPRESSION: 1. Dizziness/lightheadedness. 2. Renal insufficiency. 3. Chronic neck pain. 4. Cervical displaced disc disease. 5. Anemia. RECOMMENDATION: The patient did have a presyncopal episode and has been having some dizziness and fatigue over the past several days. This may be related to her acute renal insufficiency. Etiology is unknown at this time and Nephrology is following. Her renal function is improving with IV hydration and this could be related to dehydration at home. Cardiology is also following the patient and she is scheduled for further testing in the morning. I did review her CT scan of the brain which showed no abnormalities and her neurological examination is normal. No further inpatient neurological workup is needed at this time. She will need an EEG which will be done in the outpatient setting. Regarding her neck pain, this is chronic and she does have a cervical displaced disc disease at C5-6. She will need further outpatient neurophysiological workup given her radicular symptoms. Continue the rest of your current workup and management. I will continue to follow with you as needed. Thank you, Dr. Handy for allowing me to participate in the care of your patient. If you have any questions, please feel free to contact me. MMODL / IJN: [id number] /
--- NOTE | 2017-12-17 09:57 | P.PN ---
Subjective patient is seen in follow-up for acute kidney injury. Creatinine was 2.16 on admission and is down to 1.31 today. No further dizziness or weakness. Oral intake is good. Admits to good urine output. Diuretics and SHAYY inhibitor held. Blood pressure controlled. Scheduled for stress test tomorrow. No chest pain or shortness of breath. Vital signs are stable. General: The patient appeared well nourished and normally developed. HEENT: Head exam is unremarkable. Neck is without jugular venous distension. LUNGS: Lungs are clear to auscultation and percussion. Breath sounds decreased. HEART: Rate and Rhythm are regular. First and second heart sounds normal. No murmurs, rubs or gallops. ABDOMEN: Abdominal exam reveals normal bowel sounds. Non-tender and non- distended. No evidence of peritonitis. EXTREMITITES: No clubbing, cyanosis, or edema. Objective - Vital Signs Vital signs: Vital Signs Temp 97.5 F L 12/17/17 07:54 Pulse 74 12/17/17 07:54 Resp 18 12/17/17 07:54 BP 108/52 12/17/17 07:54 Pulse Ox 98 12/17/17 07:54 Intake & Output 12/16/17 12/17/17 12/17/17 18:59 06:59 18:59 Intake Total 690 Balance 690 Weight 90.4 kg Intake: Intake, IV Titration 450 Amount Sodium Chloride 0.9% 1, 450 000 ml @ 75 mls/hr IV . [id number] [facility] Rx#:[id number] Oral 240 Other: # Voids 1 - Labs CBC & Chem 7: 12/16/17 05:39 12/17/17 06:42 Labs: Abnormal Lab Results - Last 24 Hours (Table) 12/16/17 12/16/17 12/16/17 Range/Units 10:20 11:42 16:38 Chloride (98-107) mmol/L BUN (7-17) mg/dL Creatinine (0.52-1.04) mg/dL Glucose (74-99) mg/dL POC Glucose (mg/dL) 419 H 469 H 510 H (75-99) mg/dL 12/16/17 12/17/17 12/17/17 Range/Units 20:46 05:47 06:42 Chloride 111 H (98-107) mmol/L BUN 42 H (7-17) mg/dL Creatinine 1.31 H (0.52-1.04) mg/dL Glucose 125 H (74-99) mg/dL POC Glucose (mg/dL) 274 H 155 H (75-99) mg/dL Assessment and Plan Plan: Assessment: 1. Nonoliguric acute kidney injury mostly prerenal improving with IV hydration. Creatinine was 2.16 on admission and is down to 1.31 today. Urinalysis is benign. 2. Benign hypertension. Controlled. 3. Insulin-dependent diabetes mellitus diagnosed over 30 years ago. 4. Mild hyponatremia secondary to acute kidney injury and thiazide diuretic. Improved. Plan: Hep-Lock IV fluids. Hold chlorthalidone and SHAYY inhibitor for now. Encouraged oral intake. Avoid nephrotoxins. Repeat electrolytes in the morning. Patient complained of lower extremity numbness on admission - CAT scan negative. Schedule for stress test tomorrow.
[2017-12-17] MEDS: INSULIN PUMP MEAL BOLUS 1 UNIT MISC MISCELLANE SCH ×4 (10:46→21:07)
--- NOTE | 2017-12-17 11:23 | ECHOF ---
Referral Reason:prerna MEASUREMENTS -------- HEIGHT: 157.5 cm WEIGHT: 89.4 kg BP: 131/65 IVSd: 1.3 cm (0.6 - 1.1) LVIDd: 3.7 cm (3.9 - 5.3) LVPWd: 1.3 cm (0.6 - 1.1) IVSs: 1.6 cm LVIDs: 1.5 cm LVPWs: 1.6 cm LAESV Index (A-L): 23.51 ml/m Ao Diam: 2.9 cm (2.0 - 3.7) AV Cusp: 1.8 cm (1.5 - 2.6) LA Diam: 3.2 cm (2.7 - 3.8) MV E Felipe: 0.90 m/s MV DecT: 269 ms MV A Felipe: 0.88 m/s MV E/A Ratio: 1.02 AV maxP.58 mmHg AV meanP.48 mmHg RAP: 5.00 mmHg RVSP: 11.14 mmHg FINDINGS -------- Sinus rhythm. This was a technically adequate study. The left ventricular size is normal. There is mild concentric left ventricular hypertrophy. Overa ll left ventricular systolic function is normal with, an EF between 55 - 60 %. The right ventricle is normal in size and function. Normal LA size by volume 22+/-6 ml/m2. The right atrium is normal in size. There is mild aortic valve sclerosis. There is no evidence of aortic regurgitation. There is no e vidence of aortic stenosis. The mitral valve leaflets are mildly thickened. There is trace to mild mitral regurgitation. Trace tricuspid regurgitation present. Right ventricular systolic pressure is normal at < 35 mmHg. There is no evidence of pulmonary hypertension. Trace/mild (physiologic) pulmonic regurgitation. The aortic root size is normal. Normal inferior vena cava with normal inspiratory collapse consistent with estimated right atrial pre ssure of 5 mmHg. There is no pericardial effusion. CONCLUSIONS -------- 1. Sinus rhythm. 2. This was a technically adequate study. 3. The left ventricular size is normal. 4. There is mild concentric left ventricular hypertrophy. 5. Overall left ventricular systolic function is normal with, an EF between 55 - 60 %. 6. Normal LA size by volume 22+/-6 ml/m2. 7. There is mild aortic valve sclerosis. 8. The mitral valve leaflets are mildly thickened. 9. There is trace to mild mitral regurgitation. 10. Trace tricuspid regurgitation present. 11. Right ventricular systolic pressure is normal at < 35 mmHg. 12. There is no evidence of pulmonary hypertension. 13. Trace/mild (physiologic) pulmonic regurgitation. 14. The aortic root size is normal. 15. There is no pericardial effusion. FINANCIAL LEGAL ASSISTANT: Cullen Bang RDCS
[2017-12-17 11:40] LABS: Glucose,Whole Blood 256 mg/dL (75-99)
--- NOTE | 2017-12-17 11:55 | P.PN ---
Subjective Patient resting in bed symptoms resolved. Patient has been evaluated by cardiology nephrology and neurology. Had the CT of the brain and neck Objective - Vital Signs Vital signs: Vital Signs Temp 97.5 F L 12/17/17 07:54 Pulse 74 12/17/17 07:54 Resp 18 12/17/17 07:54 BP 108/52 12/17/17 07:54 Pulse Ox 98 12/17/17 07:54 Intake & Output 12/16/17 12/17/17 12/17/17 18:59 06:59 18:59 Intake Total 690 Output Total 500 Balance 690 -500 Weight 90.4 kg Intake: Intake, IV Titration 450 Amount Sodium Chloride 0.9% 1, 450 000 ml @ 75 mls/hr IV . [id number] [facility] Rx#:[id number] Oral 240 Output: Urine 500 Other: # Voids 1 - Constitutional General appearance: Present: mild distress - EENT Eyes: Present: PERRLA Ears: bilateral: normal - Neck Neck: Present: normal ROM - Respiratory Respiratory: bilateral: CTA - Cardiovascular Rhythm: regular - Gastrointestinal General gastrointestinal: Present: soft - Integumentary Integumentary: Present: normal - Neurologic Neurologic: Present: CNII-XII intact - Musculoskeletal Musculoskeletal: Present: generalized weakness - Psychiatric Psychiatric: Present: A&O x's 3, appropriate affect, intact judgment & insight - Labs CBC & Chem 7: 12/16/17 05:39 12/17/17 06:42 Labs: Abnormal Lab Results - Last 24 Hours (Table) 12/16/17 12/16/17 12/17/17 Range/Units 16:38 20:46 05:47 Chloride (98-107) mmol/L BUN (7-17) mg/dL Creatinine (0.52-1.04) mg/dL Glucose (74-99) mg/dL POC Glucose (mg/dL) 510 H 274 H 155 H (75-99) mg/dL 12/17/17 12/17/17 Range/Units 06:42 11:37 Chloride 111 H (98-107) mmol/L BUN 42 H (7-17) mg/dL Creatinine 1.31 H (0.52-1.04) mg/dL Glucose 125 H (74-99) mg/dL POC Glucose (mg/dL) 256 H (75-99) mg/dL - Imaging and Cardiology Chest x-ray: report reviewed CT Scan - head: report reviewed Assessment and Plan Plan: Assessment Acute kidney injury Bradycardia rate down to 30 Weakness Diabetes on insulin pump GERD Hypertension Hyperlipidemia Hypothyroidism TIA Plan Continue consultation with cardiology nephrology and neurology
--- NOTE | 2017-12-17 14:03 | P.PN ---
Subjective Progress Note Date: 12/17/17 This is a pleasant 52-year-old female with history of diabetes, hypertension, hyperlipidemia, hypothyroidism, prior history of smoking, who presented to the hospital mainly with symptoms of fatigue, dizziness, and intermittent heartburn. Patient states since Friday of last week she generally has not been feeling well. She has been getting repeated symptoms of heartburn unrelieved with medication that she takes occasionally for heartburn, she's also been getting symptoms where she feels extremely fatigued, in her arms in general, and patient states she's been experiencing intermittent dizziness. For these reasons, because of its persistence she came to the hospital for further evaluation. Blood pressure on arrival here 116/60 with a heart rate in the 60s, 100% on room air. Orthostatic blood pressures were obtained, 184/80 lying, 130/70 sitting, 107/57 standing, patient is afebrile, blood pressure currently 130/60, 98% on room air. White blood cell count is normal, hemoglobin 11.3, platelet count 214. Sodium 134, potassium 4.7, BUN 53, creatinine 1.4 BUN on admission was 64 and creatinine 2.1. Glucose levels have also been fluctuating, 231 yesterday, 469 today. Troponin is negative times one. According to the patient, she has been drinking significant amount of water at home, she denies any use of nonsteroidal anti-inflammatories, no episodes of diarrhea or vomiting. She is known to have issues with her kidneys in the past. Patient was also on chlorthalidone an SHAYY inhibitor at home. These have been placed on hold. Patient was hydrated, and her kidney function improved. Overall she does state that she feels better today. 12/17/2017 Patient seen and examined this morning, overall feeling well, denied any chest discomfort, breathing is stable. Blood pressure 133/60 with a heart rate in the 60s, 98% on room air. Sodium 141, potassium 4.2, BUN 42, creatinine 1.3. Originally patient is scheduled to undergo a Lexiscan stress test today, she's been encouraged by Dr. Wells to be up ambulating in the [place] as much as possible today, Salome scan will be rescheduled for tomorrow. Echocardiogram with Doppler study was performed which revealed an ejection fraction of 55-60%. Objective - Vital Signs Vital signs: Vital Signs Temp 97.7 F 12/17/17 11:55 Pulse 74 12/17/17 11:55 Resp 18 12/17/17 11:55 BP 133/59 12/17/17 11:55 Pulse Ox 98 12/17/17 11:55 Intake & Output 12/16/17 12/17/17 12/17/17 18:59 06:59 18:59 Intake Total 690 Output Total 500 Balance 690 -500 Weight 90.4 kg Intake: Intake, IV Titration 450 Amount Sodium Chloride 0.9% 1, 450 000 ml @ 75 mls/hr IV . [id number] [facility] Rx#:[id number] Oral 240 Output: Urine 500 Other: # Voids 1 - Exam PHYSICAL EXAMINATION: GENERAL: 52-year-old female in no acute distress at the time of my examination HEENT: Head is atraumatic, normocephalic. Pupils equal, round. Sclera anicteric. Conjunctiva are clear. Mucous membranes of the mouth are moist. Neck is supple. There is no elevated jugular venous pressure. No carotid bruit is heard. HEART EXAMINATION: Heart S1, S2 normal. No murmur or gallop heard. CHEST EXAMINATION: Lungs are clear to auscultation and precussion. No chest wall tenderness is noted on palpation or with deep breathing. ABDOMEN: Soft, nontender. Bowel sounds are heard. No organomegaly noted. EXTREMITIES: 2+ peripheral pulses with no evidence of peripheral edema and no calf tenderness noted. NEUROLOGIC patient is awake, alert and oriented ?-3. - Labs CBC & Chem 7: 12/16/17 05:39 12/17/17 06:42 Labs: Abnormal Lab Results - Last 24 Hours (Table) 12/16/17 12/16/17 12/17/17 Range/Units 16:38 20:46 05:47 Chloride (98-107) mmol/L BUN (7-17) mg/dL Creatinine (0.52-1.04) mg/dL Glucose (74-99) mg/dL POC Glucose (mg/dL) 510 H 274 H 155 H (75-99) mg/dL 12/17/17 12/17/17 Range/Units 06:42 11:37 Chloride 111 H (98-107) mmol/L BUN 42 H (7-17) mg/dL Creatinine 1.31 H (0.52-1.04) mg/dL Glucose 125 H (74-99) mg/dL POC Glucose (mg/dL) 256 H (75-99) mg/dL Assessment and Plan Plan: Assessment and plan #1 symptoms of generalized malaise, fatigue, and intermittent heartburn. One troponin is negative. EKG shows normal sinus rhythm with no acute changes. #2 non-oliguric acute kidney injury, improving with IV hydration, creatinine 2.1 on admission, 1.4 today. #3 diabetes #4 hyperlipidemia #5 mild hyponatremia secondary to acute kidney injury Plan Echocardiogram with Doppler study was performed which revealed normal left ventricular systolic function. BUN 42 and creatinine 1.3 today. Patient will undergo a Lexiscan stress test tomorrow. Further recommendations will be based on those findings and the patient's clinical course. DNP note has been reviewed, I agree with a documented findings and plan of care. Patient was seen and examined.
[2017-12-17 17:02] LABS: Glucose,Whole Blood 297 mg/dL (75-99)
[2017-12-17 21:06] LABS: Glucose,Whole Blood 243 mg/dL (75-99)
[2017-12-18 04:15] VITALS: RESP 18
[2017-12-18 05:54] LABS: Calcium 8.6 mg/dL (8.4-10.2)
[2017-12-18 06:04] LABS: Glucose,Whole Blood 224 mg/dL (75-99)
[2017-12-18] MEDS: INSULIN PUMP MEAL BOLUS 1 UNIT MISC MISCELLANE SCH (06:51)
[2017-12-18 08:58] VITALS: PULSE 74; TEMP 97.6
[2017-12-18] MEDS ORDERED: REGADENOSON 0.4 MG/5 ML SYRINGE IV ONE (09:15)
--- NOTE | 2017-12-18 10:21 | P.STRESS ---
- Stress Test Note Stress Test Results/Findings: Exam Performed: NM stress lexiscan cardiolite Exam Date: 12/18/17 Reason for Exam: CHEST PAIN Height: 5 ft 2 in Weight: 90.9 kg Protocol: LEXISCAN Stage: NA Duration of Exercise: NA Resting Heart Rate: 69 Resting Blood Pressure: 134/74 Maximum Achieved Heart Rate: 83 Maximum Achieved Blood Pressure: 134/74 85% PMHR: NA 100% PMHR: NA METS: NA Technologist Comment: Stress Test Results/Findings: This is a 52-year-old female with history of hypertension, diabetes, hypercholesterolemia and family history of ischemic heart disease being evaluated for symptoms of chest pain and palpitations. Stress data: Baseline EKG showed sinus rhythm. A standard dose of Lexiscan was infused. Blood pressure at rest is 1 3474 with pulse rate of 69. EKGs taken during and after the Lexiscan infusion did not reveal any changes of ischemia. Final impression: #1. Negative Lexiscan stress test #2. Report on the nuclear images to be given by the radiologist.
--- NOTE | 2017-12-18 10:37 | P.PN ---
Subjective patient is seen in follow-up for acute kidney injury. Creatinine was 2.16 on admission and is down to 1.07 today. No further dizziness or weakness. Oral intake is good. Admits to good urine output. Diuretics and SHAYY inhibitor held. Blood pressure controlled. Underwent stress test today. No chest pain or shortness of breath. Vital signs are stable. General: The patient appeared well nourished and normally developed. HEENT: Head exam is unremarkable. Neck is without jugular venous distension. LUNGS: Lungs are clear to auscultation and percussion. Breath sounds decreased. HEART: Rate and Rhythm are regular. First and second heart sounds normal. No murmurs, rubs or gallops. ABDOMEN: Abdominal exam reveals normal bowel sounds. Non-tender and non- distended. No evidence of peritonitis. EXTREMITITES: No clubbing, cyanosis, or edema. Objective - Vital Signs Vital signs: Vital Signs Temp 97.6 F 12/18/17 08:00 Pulse 74 12/18/17 08:00 Resp 18 12/18/17 08:00 BP 118/66 12/18/17 08:00 Pulse Ox 95 12/18/17 08:00 Intake & Output 12/17/17 12/18/17 12/18/17 18:59 06:59 18:59 Intake Total 360 874 Output Total 500 Balance -140 874 Weight 90.9 kg Intake: Oral 360 874 Output: Urine 500 Other: # Voids 2 2 - Labs CBC & Chem 7: 12/16/17 05:39 12/18/17 05:30 Labs: Abnormal Lab Results - Last 24 Hours (Table) 12/16/17 12/17/17 12/17/17 Range/Units 05:39 11:37 16:42 Chloride (98-107) mmol/L BUN (7-17) mg/dL Creatinine (0.52-1.04) mg/dL Glucose (74-99) mg/dL POC Glucose (mg/dL) 256 H 297 H (75-99) mg/dL Hemoglobin A1c 14.0 H (4.0-6.0) % 12/17/17 12/18/17 12/18/17 Range/Units 21:05 05:30 06:03 Chloride 108 H (98-107) mmol/L BUN 34 H (7-17) mg/dL Creatinine 1.07 H (0.52-1.04) mg/dL Glucose 191 H (74-99) mg/dL POC Glucose (mg/dL) 243 H 224 H (75-99) mg/dL Hemoglobin A1c (4.0-6.0) % Assessment and Plan Plan: Assessment: 1. Nonoliguric acute kidney injury mostly prerenal improving with IV hydration. Creatinine was 2.16 on admission and is down to 1.07 today. Urinalysis is benign. 2. Benign hypertension. Controlled. 3. Insulin-dependent diabetes mellitus diagnosed over 30 years ago. 4. Mild hyponatremia secondary to acute kidney injury and thiazide diuretic. Improved. Plan: Remains off IV fluids. Hold chlorthalidone and SHAYY inhibitor for now. Encouraged oral intake. Avoid nephrotoxins. Repeat electrolytes in the morning. Follow-up stress test results. Stable to be discharged home from nephrology standpoint. Follow up outpatient in 1-2 weeks.
--- NOTE | 2017-12-18 11:00 | P.PN ---
Subjective Patient resting in bed without complaint this morning. Awaiting results from stress test. Carotid ultrasound ordered. A1c is 14 Objective - Vital Signs Vital signs: Vital Signs Temp 97.6 F 12/18/17 08:00 Pulse 74 12/18/17 08:00 Resp 18 12/18/17 08:00 BP 118/66 12/18/17 08:00 Pulse Ox 95 12/18/17 08:00 Intake & Output 12/17/17 12/18/17 12/18/17 18:59 06:59 18:59 Intake Total 360 874 Output Total 500 Balance -140 874 Weight 90.9 kg Intake: Oral 360 874 Output: Urine 500 Other: # Voids 2 2 - Constitutional General appearance: Present: obese - EENT Eyes: Present: PERRLA Ears: bilateral: normal - Neck Neck: Present: normal ROM Carotids: bilateral: upstroke normal - Respiratory Respiratory: bilateral: CTA - Cardiovascular Rhythm: regular - Gastrointestinal General gastrointestinal: Present: soft - Integumentary Integumentary: Present: normal - Neurologic Neurologic: Present: CNII-XII intact - Psychiatric Psychiatric: Present: A&O x's 3, appropriate affect, intact judgment & insight - Labs CBC & Chem 7: 12/16/17 05:39 12/18/17 05:30 Labs: Abnormal Lab Results - Last 24 Hours (Table) 12/16/17 12/17/17 12/17/17 Range/Units 05:39 11:37 16:42 Chloride (98-107) mmol/L BUN (7-17) mg/dL Creatinine (0.52-1.04) mg/dL Glucose (74-99) mg/dL POC Glucose (mg/dL) 256 H 297 H (75-99) mg/dL Hemoglobin A1c 14.0 H (4.0-6.0) % 12/17/17 12/18/17 12/18/17 Range/Units 21:05 05:30 06:03 Chloride 108 H (98-107) mmol/L BUN 34 H (7-17) mg/dL Creatinine 1.07 H (0.52-1.04) mg/dL Glucose 191 H (74-99) mg/dL POC Glucose (mg/dL) 243 H 224 H (75-99) mg/dL Hemoglobin A1c (4.0-6.0) % Assessment and Plan Plan: Assessment Bradycardia range on the 30 acute kidney injury resolved Generalized weakness Uncontrolled diabetes GERD Hypertension Hyperlipidemia Hypothyroidism TIA Plan Hopeful discharge soon awaiting cardiology report on stress test Discharged home from nephrology
[2017-12-18] MEDS: LEVOTHYROXINE 100 MCG TAB PO SCH (11:19)
[2017-12-18] MEDS: amLODIPine 2.5 MG TAB PO SCH (11:19)
[2017-12-18] MEDS: ATENOLOL 50 MG TAB PO SCH (11:19)
[2017-12-18] MEDS: ATORVASTATIN 40 MG TAB PO SCH (11:19)
[2017-12-18 11:25] VITALS: BP 143/64
[2017-12-18 11:42] LABS: Glucose,Whole Blood 183 mg/dL (75-99)
--- NOTE | 2017-12-18 11:44 | NM ---
EXAMINATION TYPE: NM stress lexiscan cardiolite DATE OF EXAM: 12/18/2017 COMPARISON: NONE HISTORY: Chest pain TECHNIQUE: After the intravenous administration of 10.27 mCi Tc 99m Sestamibi - Cardiolite resting S PECT images acquired 45 minutes post injection. The patient received 0.4mg Lexiscan, 21.4 mCi Tc 99m Sestamibi - Stress images obtained [address] injection FINDINGS: No fixed or reversible perfusion defects are evident. Gated wall motion is normal. Ejection fraction of 61 % is normal IMPRESSION: No prior infarcts or stress-induced ischemic changes.
[2017-12-18] MEDS ORDERED: ASPIRIN 81 MG PO SCH (11:45)
--- NOTE | 2017-12-18 13:54 | P.PN ---
Subjective Progress Note Date: 12/18/17 This is a pleasant 52-year-old female with history of diabetes, hypertension, hyperlipidemia, hypothyroidism, prior history of smoking, who presented to the hospital mainly with symptoms of fatigue, dizziness, and intermittent heartburn. Patient states since Friday of last week she generally has not been feeling well. She has been getting repeated symptoms of heartburn unrelieved with medication that she takes occasionally for heartburn, she's also been getting symptoms where she feels extremely fatigued, in her arms in general, and patient states she's been experiencing intermittent dizziness. For these reasons, because of its persistence she came to the hospital for further evaluation. Blood pressure on arrival here 116/60 with a heart rate in the 60s, 100% on room air. Orthostatic blood pressures were obtained, 184/80 lying, 130/70 sitting, 107/57 standing, patient is afebrile, blood pressure currently 130/60, 98% on room air. White blood cell count is normal, hemoglobin 11.3, platelet count 214. Sodium 134, potassium 4.7, BUN 53, creatinine 1.4 BUN on admission was 64 and creatinine 2.1. Glucose levels have also been fluctuating, 231 yesterday, 469 today. Troponin is negative times one. According to the patient, she has been drinking significant amount of water at home, she denies any use of nonsteroidal anti-inflammatories, no episodes of diarrhea or vomiting. She is known to have issues with her kidneys in the past. Patient was also on chlorthalidone an SHAYY inhibitor at home. These have been placed on hold. Patient was hydrated, and her kidney function improved. Overall she does state that she feels better today. 12/17/2017 Patient seen and examined this morning, overall feeling well, denied any chest discomfort, breathing is stable. Blood pressure 133/60 with a heart rate in the 60s, 98% on room air. Sodium 141, potassium 4.2, BUN 42, creatinine 1.3. Originally patient is scheduled to undergo a Lexiscan stress test today, she's been encouraged by Dr. Wells to be up ambulating in the [place] as much as possible today, Salome scan will be rescheduled for tomorrow. Echocardiogram with Doppler study was performed which revealed an ejection fraction of 55-60%. 12/18/2017 Patient seen and examined today, denies any chest discomfort. Underwent Lexiscan stress test today which was negative for any reversible ischemia. Sodium 138, potassium 4.0, BUN 34, creatinine 1.0. Objective - Vital Signs Vital signs: Vital Signs Temp 97.6 F 12/18/17 11:22 Pulse 74 12/18/17 11:22 Resp 18 12/18/17 11:22 BP 143/64 12/18/17 11:22 Pulse Ox 98 12/18/17 11:22 Intake & Output 12/17/17 12/18/17 12/18/17 18:59 06:59 18:59 Intake Total 360 874 222 Output Total 500 Balance -140 874 222 Weight 90.9 kg Intake: Oral 360 874 222 Output: Urine 500 Other: # Voids 2 2 - Exam PHYSICAL EXAMINATION: GENERAL: 52-year-old female in no acute distress at the time of my examination HEENT: Head is atraumatic, normocephalic. Pupils equal, round. Sclera anicteric. Conjunctiva are clear. Mucous membranes of the mouth are moist. Neck is supple. There is no elevated jugular venous pressure. No carotid bruit is heard. HEART EXAMINATION: Heart S1, S2 normal. No murmur or gallop heard. CHEST EXAMINATION: Lungs are clear to auscultation and precussion. No chest wall tenderness is noted on palpation or with deep breathing. ABDOMEN: Soft, nontender. Bowel sounds are heard. No organomegaly noted. EXTREMITIES: 2+ peripheral pulses with no evidence of peripheral edema and no calf tenderness noted. NEUROLOGIC patient is awake, alert and oriented ?-3. - Labs CBC & Chem 7: 12/16/17 05:39 12/18/17 05:30 Labs: Abnormal Lab Results - Last 24 Hours (Table) 12/16/17 12/17/17 12/17/17 Range/Units 05:39 16:42 21:05 Chloride (98-107) mmol/L BUN (7-17) mg/dL Creatinine (0.52-1.04) mg/dL Glucose (74-99) mg/dL POC Glucose (mg/dL) 297 H 243 H (75-99) mg/dL Hemoglobin A1c 14.0 H (4.0-6.0) % 12/18/17 12/18/17 12/18/17 Range/Units 05:30 06:03 11:40 Chloride 108 H (98-107) mmol/L BUN 34 H (7-17) mg/dL Creatinine 1.07 H (0.52-1.04) mg/dL Glucose 191 H (74-99) mg/dL POC Glucose (mg/dL) 224 H 183 H (75-99) mg/dL Hemoglobin A1c (4.0-6.0) % Assessment and Plan Plan: Assessment and plan #1 symptoms of generalized malaise, fatigue, and intermittent heartburn. One troponin is negative. EKG shows normal sinus rhythm with no acute changes. #2 non-oliguric acute kidney injury, improving with IV hydration, creatinine 2.1 on admission, 1.4 today. #3 diabetes #4 hyperlipidemia #5 mild hyponatremia secondary to acute kidney injury Plan Echocardiogram with Doppler study was performed which revealed normal left ventricular systolic function. Salome scan stress test of today negative for reversible ischemia. From cardiology's perspective she may be able to be discharged home to follow-up in the office post discharge. DNP note has been reviewed, I agree with a documented findings and plan of care. Patient was seen and examined.
--- NOTE | 2017-12-18 14:11 | US ---
EXAMINATION TYPE: US carotid duplex BILAT DATE OF EXAM: 12/18/2017 COMPARISON: NONE CLINICAL HISTORY: near syncope. EXAM MEASUREMENTS: RIGHT: Peak Systolic Velocity (PSV) cm/sec ----- Right CCA: 73.5 ----- Right ICA: 118.6 ----- Right ECA: 111.3 ICA/CCA ratio: 1.6 RIGHT: End Diastole cm/sec ----- Right CCA: 19.8 ----- Right ICA: 34.3 ----- Right ECA: 11.0 LEFT: Peak Systolic Velocity (PSV) cm/sec ----- Left CCA: 81.7 ----- Left ICA: 93.0 ----- Left ECA: 105.6 ICA/CCA ratio: 1.1 LEFT: End Diastole cm/sec ----- Left CCA: 20.4 ----- Left ICA: 32.5 ----- Left ECA: 11.1 VERTEBRALS (direction of flow): Right Vertebral: Antegrade Left Vertebral: Antegrade Rhythm: Normal Mild amount of plaque visualized in left bulb. No elevated velocities, no significant stenosis. Turbulent flow is noted on the right IMPRESSION: 1. Atheromatous plaquing without significant flow-limiting stenosis. Criteria for Assigning % of Stenosis / Diameter reduction (Estimation based on the indirect measurements of the internal carotid artery velocities (ICA PSV). 1. Normal (no stenosis)=ICA PSV < 125 cm/s: ratio < 2.0: ICA EDV<40 cm/s. 2. Less than 50% stenosis=ICA PSV < 125 cm/s: ratio < 2.0: ICA EDV<40 cm/s. 3. 50 to 69% stenosis=ICA PSV of 125 to 230 cm/s: ration 2.0 ? 4.0: ICA EDV 40-100 cm/s. 4. Greater than 70% stenosis to near occlusion= ICA PSV > 230 cm/s: ratio > 4.0: ICA EDV > 100 cm/s. 5. Near occlusion= ICA PSV velocities may be low or undetectable: variable ratio and ICA EDV. 6. Total occlusion=unable to detect flow.
--- NOTE | 2017-12-18 14:29 | P.DS ---
Providers Date of admission: 12/15/17 21:20 Expected date of discharge: 12/18/17 Attending physician: Daryl Handy Consults: 12/15/17 21:25 Consult Physician Routine Consulting Provider: [facility] Consult Reason/Comments: Bradycardia Do you want consulting provider notified?: Yes 12/16/17 08:46 Consult Physician Routine Consulting Provider: Birdie Beebe Consult Reason/Comments: INDER Do you want consulting provider notified?: Yes 12/16/17 09:14 Consult Physician Urgent Consulting Provider: Maria Victoria Kwok Consult Reason/Comments: near syncope weakness speech difficulty Do you want consulting provider notified?: Already Contacted Primary care physician: Daryl Handy Hospital Course: 52-year-old female presented the emergency room with complaints of fatigue neck pain chest pain changes in speech let's left arm weakness in their syncopal episode. Patient was evaluated and found to have a bradycardic rhythm to him 30 bpm, acute kidney injury resolved, weakness. Patient was found to be an acute kidney injury. Patient was evaluated by cardiology had a negative Gina scan patient was stabilize a with the doctors afar for her of acute kidney injury patient was evaluated by neurology. Patients diabetes is uncontrolled has not had regular use of a pump. 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 CAT scan of the had the normal changes. Carotid arteries no significant stenosis Assessment bradycardia rate down the 30 acute kidney injury resolved generalize weakness resolved uncontrolled diabetes GERD hypertension hyperlipidemia hypothyroidism Plan maybe discharge home follow up with the cardiology Dr. Beebe neurology and family physician Dr. Daryl Handy Patient Condition at Discharge: Serious Plan - Discharge Summary New Discharge Prescriptions: New Aspirin 81 mg PO DAILY chew Continue amLODIPine [Norvasc] 2.5 mg PO DAILY Ramipril [Altace] 10 mg PO BID Levothyroxine Sodium [Synthroid] 200 mcg PO DAILY Atenolol/Chlorthalidone [Atenolol-Chlorthalidone 50-25] 1 tab PO DAILY Insulin Lispro [humaLOG] 0 units SQ ACHS Atorvastatin [Lipitor] 40 mg PO DAILY Discharge Medication List Atenolol/Chlorthalidone [Atenolol-Chlorthalidone 50-25] 1 tab PO DAILY 10/15/14 [History] Insulin Lispro [humaLOG] 0 units SQ ACHS 10/15/14 [History] Levothyroxine Sodium [Synthroid] 200 mcg PO DAILY 10/15/14 [History] Ramipril [Altace] 10 mg PO BID 10/15/14 [History] amLODIPine [Norvasc] 2.5 mg PO DAILY 10/15/14 [History] Atorvastatin [Lipitor] 40 mg PO DAILY 12/15/17 [History] Aspirin 81 mg PO DAILY chew 12/18/17 [Rx] Follow up Appointment(s)/Referral(s): Daryl Handy MD [Primary Care Provider] - 12/23/17 9:30 am (Friday) Fransisco Wells MD [STAFF PHYSICIAN] - 3 Weeks Maria Victoria Kwok MD [STAFF PHYSICIAN] - 3 Weeks
[2017-12-18 15:08] VITALS: BMI 36.6
== END 2017-12-18 16:17 | disposition home or self-care (01) | DRG 683 ==
LOC: EC 16:21 → 6SEL 21:20
PROVIDERS: ADMIT Family Medicine; ATTEND Family Medicine
DX: N17.9 Acute kidney failure, unspecified (principal); E87.1 Hypo-osmolality and hyponatremia; G45.9 Transient cerebral ischemic attack, unspecified; D64.9 Anemia, unspecified; E03.9 Hypothyroidism, unspecified; E11.65 Type 2 diabetes mellitus with hyperglycemia; E78.5 Hyperlipidemia, unspecified; T50.2X5A Adverse effect of carbonic-anhydrase inhibitors, benzothiadiazides and other diuretics, initial encounter; G89.29 Other chronic pain; I10 Essential (primary) hypertension; K21.9 Gastro-esophageal reflux disease without esophagitis; M50.222 Other cervical disc displacement at C5-C6 level; R00.1 Bradycardia, unspecified; R07.89 Other chest pain; Z79.899 Other long term (current) drug therapy; Z79.4 Long term (current) use of insulin; Z79.890 Hormone replacement therapy; Z96.41 Presence of insulin pump (external) (internal); Z86.14 Personal history of Methicillin resistant Staphylococcus aureus infection; Z90.710 Acquired absence of both cervix and uterus; Z87.891 Personal history of nicotine dependence; Z98.51 Tubal ligation status; Z82.49 Family history of ischemic heart disease and other diseases of the circulatory system; Z82.3 Family history of stroke; Y92.009 Unspecified place in unspecified non-institutional (private) residence as the place of occurrence of the external cause
CPT/HCPCS: 36415; 70450; 71046; 72125; 78452; 80048; 80053; 81001; 82550; 82553; 83036; 83735; 84443; 84484; 85025; 85610; 85730; 93005; 93017; 93306; 93880; 96361; 96374; 99284

== ENCOUNTER → 2018-01-13 | Outpatient (CLI) | payer BC ==
[2018-01-13 16:13] LABS: Albumin 4.1 g/dL (3.80-4.90); Albumin/Globulin Ratio 1.64 (1.20-2.10); Anion Gap 7.4 mmol/L (4.00-12.00); Calcium 9.2 mg/dL (8.7-10.3); Carbon Dioxide 22.6 mmol/L (21.6-31.8); Globulin 2.5 g/dL (2.1-3.7); LDL Cholesterol,Calculated 50.6 mg/dL (0.0-131.0); Potassium 4.8 mmol/L (3.5-5.5); Total Bilirubin 0.4 mg/dL (0.3-1.2); Total Protein 6.6 g/dL (6.2-8.2)
[2018-01-14 06:53] LABS: VLDL Calculation 16.4 mg/dL (5.00-40.00)
== END | disposition home or self-care (01) ==
LOC: LABWHC1 08:07
PROVIDERS: ATTEND Nurse Practitioner Adult Health
DX: I10 Essential (primary) hypertension (principal); E78.5 Hyperlipidemia, unspecified
CPT/HCPCS: 36415; 80053; 80061

== ENCOUNTER → 2018-02-11 | Outpatient (CLI) | payer BC ==
[2018-02-11 13:44] LABS: HCT 35.4 % (34.0-46.0); HGB 11.9 gm/dL (11.4-16.0); MCH 31.5 pg (25.0-35.0); MCHC 33.6 g/dL (31.0-37.0); MCV 93.9 fL (80.0-100.0); Mean Platelet Volume 7.3; Platelet Count 220 k/uL (150-450); RBC 3.76 m/uL (3.80-5.40); RDW 12.4 % (11.5-15.5); WBC 6.2 k/uL (3.8-10.6)
[2018-02-11 14:01] LABS: Potassium 5.5 mmol/L (3.5-5.1)
== END | disposition home or self-care (01) ==
LOC: LABPAT 12:18
PROVIDERS: ATTEND Internal Medicine Interventional Cardiology
DX: Z01.812 Encounter for preprocedural laboratory examination (principal); I10 Essential (primary) hypertension; E78.5 Hyperlipidemia, unspecified; R07.89 Other chest pain; I65.23 Occlusion and stenosis of bilateral carotid arteries
CPT/HCPCS: 36415; 80051; 82565; 84520; 85027

== ENCOUNTER 2018-02-18 07:11 | Day surgery (SDC) | payer BC ==
[2018-02-11 14:56] VITALS: BMI 36.6
[~2018-02-18 07:11] MED LIST: ALPRAZolam 0.25 MG TAB PO PRN; ALPRAZolam 0.5 MG TAB PO PRN; ASPIRIN 325 MG TAB PO ONE; ATORVASTATIN 80 MG TAB PO ONE; NITROGLYCERIN SL TABS 0.4 MG TAB SUBLINGUAL PRN
[2018-02-18 07:37] VITALS: TEMP 97.9
[2018-02-18 07:49] LABS: Glucose,Whole Blood 151 mg/dL (75-99)
[2018-02-18] MEDS ORDERED: LIDOCAINE 1% INJ 10MG/ML (20 ML MDV) ONE (09:44)
[2018-02-18] MEDS ORDERED: VERAPAMIL 2.5 MG/ML 2 ML AMP ONE (09:45)
[2018-02-18] MEDS ORDERED: fentaNYL (PF) 50 MCG/ML 2 ML AMP ONE (09:57)
[2018-02-18] MEDS ORDERED: HEPARIN SODIUM 1,000 UN/ML (10ML VL) ONE (09:58)
[2018-02-18] MEDS ORDERED: SODIUM CHLORIDE 0.9% 1,000 ML in EMPTY BAG 1 BAG IV ONE (10:00)
[2018-02-18] MEDS ORDERED: fentaNYL (PF) 50 MCG/ML 2 ML AMP IV ONE (10:04)
[2018-02-18] MEDS ORDERED: MIDAZOLAM 2 MG/2 ML VIAL ONE (10:05)
[2018-02-18] MEDS ORDERED: LIDOCAINE 1% INJ 10MG/ML (20 ML MDV) SQ ONE (10:06)
[2018-02-18 10:07] LABS: Glucose,Whole Blood 86 mg/dL (75-99)
[2018-02-18] MEDS ORDERED: VERAPAMIL SYRINGE (5 MG/10 ML) INTRAARTER ONE (10:07)
[2018-02-18] MEDS ORDERED: MIDAZOLAM 2 MG/2 ML VIAL IV ONE (10:07)
[2018-02-18] MEDS ORDERED: HEPARIN SODIUM 1,000 UN/ML (10ML VL) IV ONE (10:13)
[2018-02-18] MEDS ORDERED: IOPAMIDOL-370 125ML BTL INJ ONE (10:15)
[2018-02-18] MEDS ORDERED: RX INFO: IV CONTRAST WAS GIVEN 1 EACH MISC MISCELLANE PRN (10:32)
[2018-02-18] MEDS ORDERED: ISOSORBIDE MONONITRATE ER 30 MG TAB.ER.24H PO SCH (10:45)
[2018-02-18] MEDS ORDERED: SODIUM CHLORIDE 0.9% 1,000 ML IV SCH (10:45)
[2018-02-18] MEDS ORDERED: INSULIN LISPRO (For Pump) 100 UNIT/ML VIAL SQ-PUMP SCH (10:45)
--- NOTE | 2018-02-18 11:06 | CC ---
CARDIAC CATHETERIZATION REPORT Ms. Gutiérrez is a 52-year-old female who is followed by Dr. Wells, has a history of diabetes, hyperlipidemia, hypertension, a prior history of smoking, who presented with symptoms of chest discomfort. Her. Her symptoms persisted and she underwent a myocardial perfusion imaging that revealed no evidence of stress-induced ischemia. Because of the persistent symptoms and her multiple risk factors, recommendation made regarding cardiac catheterization. The procedure, risks and complication were discussed with the patient who is in full understanding and agreement. 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 Using Xylocaine anesthesia and a Seldinger technique, a 6-Honduran sheath was introduced in the right radial artery. Selective right and left coronary angiography performed using 5-Honduran 3.5 bend right and left Eneida catheter, multiple views of the right coronary artery including hemiaxial views were obtained. Following that, a 5-Honduran tight pigtail catheter was introduced in the left ventricle and a 30 degree BOWEN view of the left ventricle was obtained. Following that, catheter and sheath were removed, hemostasis was obtained with deployment of a TR band. There was no immediate complication. Patient was returned to her room in stable condition. Of note, patient received 5000 units of intravenous heparin as well as intra-arterial verapamil. FINDINGS: FLUOROSCOPY: There was severe calcification involving all the coronary arteries. LEFT MAIN: This is a large-sized vessel, bifurcating into left circumflex, left anterior descending artery, left main coronary artery has no evidence of high-grade stenosis. LEFT ANTERIOR DESCENDING ARTERY: This is a large-sized vessel reaching toward the apex, tapers down in the distal third, giving rise to 2 small diagonal branches, the left anterior descending artery and mid-distal vessel has diffuse disease, up to 20% to 30%. There is an area at the apex that has about 50% to 60% stenosis, by then the vessel is quite small in caliber. LEFT CIRCUMFLEX: This is a nondominant vessel, giving rise to 2 obtuse marginal branches. The first one is very proximal and of a small caliber that has about a 50% plaque in the mid segment. The rest of the vessel has mild intimal disease without any evidence of high-grade stenosis. RIGHT CORONARY ARTERY: This is a dominant vessel, large in caliber, bifurcating distally into PDA and posterolateral segment branches. The right coronary artery has intimal disease throughout its course of 20% to 30% without any evidence of high-grade stenosis. LEFT VENTRICULOGRAM: Left ventriculogram was not performed. HEMODYNAMICS: There was no gradient across the aortic valve. The ventricular end- diastolic pressure was 8-10 mmHg. CONCLUSION: 1. Calcified coronary arteries. 2. Mild to moderate triple-vessel coronary artery disease. RECOMMENDATION: In view of finding anatomy, I recommend continue medical therapy with aggressive coronary risk modifications being initiated. Those findings and recommendation were discussed with the patient and her family and they are in full understanding and agreement. DURATION OF PROCEDURE: 14 minutes. MMODL / IJN: [id number] /
[2018-02-18 12:57] VITALS: PULSE 64
[2018-02-18 12:58] VITALS: BP 134/60; RESP 18
[2018-02-18] MEDS ORDERED: RAMIPRIL 10 MG PO SCH (21:00)
[2018-02-19] MEDS ORDERED: ASPIRIN 81 MG PO SCH (09:00)
[2018-02-19] MEDS ORDERED: NON-FORMULARY DRUG (Atenolol/Chlorthalidone [Atenolol-Chlorthalidone 50-25] 1 TAB) PO SCH (09:00)
[2018-02-19] MEDS ORDERED: LEVOTHYROXINE 25 MCG TAB PO SCH (09:00)
[2018-02-19] MEDS ORDERED: ATORVASTATIN 40 MG TAB PO SCH (09:00)
--- NOTE | 2018-02-20 12:04 | CDI ---
Outpatient Documentation Clarification Form Date: 02/20/18 CDS/Waste Picker Name: Brandi Duggan Phone: If any questions, call Adriana [employer] Counterman at [phone] Patient Name: Mario Gutiérrez Admit Date: 02/18/18 Discharge Date: 02/18/18 ATTENTION: The [facility] Coding Staff appreciate your assistance in clarifying documentation. Please respond to the clarification below the line at the bottom and electronically sign. The [facility] Coding staff will review the response and follow-up if needed. Please note: Queries are made part of the Legal Health Record. If you have any questions, please contact the Parts Counterman. Dear Dr. Price/Marcela Salinas NP, The H&P documents Uncontrolled diabetes type 2. Is the diabetes uncontrolled, meaning A. Hyperglycemia, or B. Hypoglycemia? Please clarify. Thank you for your kind consideration. Uncontrolled diabetes not a problem on this admission. Listed in H&P from the office. MTDD
== END 2018-02-18 15:37 | disposition home or self-care (01) ==
LOC: CATHCVL 07:11
PROVIDERS: ATTEND Internal Medicine Interventional Cardiology
DX: I25.10 Atherosclerotic heart disease of native coronary artery without angina pectoris (principal); I65.23 Occlusion and stenosis of bilateral carotid arteries; I10 Essential (primary) hypertension; E78.5 Hyperlipidemia, unspecified; E03.9 Hypothyroidism, unspecified; E11.9 Type 2 diabetes mellitus without complications; E78.00 Pure hypercholesterolemia, unspecified; F17.200 Nicotine dependence, unspecified, uncomplicated; Z79.890 Hormone replacement therapy; Z79.4 Long term (current) use of insulin; Z79.899 Other long term (current) drug therapy; Z82.49 Family history of ischemic heart disease and other diseases of the circulatory system
CPT/HCPCS: 93458; 82565; 84132; 84520; J2250; J2001; J3010; J1644; Q9967

== ENCOUNTER → 2018-02-23 | Outpatient (CLI) | payer BC ==
[2018-02-23 16:48] LABS: Anion Gap 6.4 mmol/L (4.00-12.00); Calcium 9.5 mg/dL (8.7-10.3); Carbon Dioxide 25.6 mmol/L (21.6-31.8)
== END | disposition home or self-care (01) ==
LOC: LABWHC1 10:12
PROVIDERS: ATTEND Internal Medicine Interventional Cardiology
DX: I25.10 Atherosclerotic heart disease of native coronary artery without angina pectoris (principal)
CPT/HCPCS: 36415; 80048

== ENCOUNTER → 2018-05-06 | Outpatient (CLI) | payer BC ==
--- NOTE | 2018-05-06 16:07 | XR ---
EXAMINATION TYPE: XR chest 2V DATE OF EXAM: 05/06/2018 COMPARISON: Prior chest x-ray 12/15/2017 HISTORY: Rib pain TECHNIQUE: Frontal and lateral views of the chest are obtained. FINDINGS: Patient is rotated to the right. There is no focal air space opacity, pleural effusion, or pneumothorax seen. The cardiac silhouette size is within normal limits. The osseous structures are intact. IMPRESSION: No acute cardiopulmonary process.
== END | disposition home or self-care (01) ==
LOC: RADXRMAIN 14:37
PROVIDERS: ATTEND Midwife
DX: R07.81 Pleurodynia (principal)
CPT/HCPCS: 71046

== ENCOUNTER → 2018-11-20 | Outpatient (CLI) | payer BC ==
--- NOTE | 2018-11-20 13:01 | US ---
EXAMINATION TYPE: US abdomen complete DATE OF EXAM: 11/20/2018 COMPARISON: NONE CLINICAL HISTORY: 53-year-old female R10.12 L upper abd pain. TECHNIQUE: Multiple sonographic images of the abdomen are obtained. 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 Pancreas: Suboptimal visualization due to shadowing from bowel gas. Liver: Grossly unremarkable. No focal lesion seen. Gallbladder: Tiny layering calculi. No abnormal gallbladder distention, wall thickening, or perichole cystic fluid. Evidence for sonographic Yang's sign: no CBD: wnl Spleen: wnl Right Kidney: measures small compared to left. No hydronephrosis. Left Kidney: wnl . No hydronephrosis. Upper IVC: wnl Abd Aorta: mostly obscured by overlying bowel gas, portions visualized wnl IMPRESSION: 1. A few tiny layering gallstones. No ancillary findings of acute cholecystitis. 2. No biliary ductal dilatation.
== END | disposition home or self-care (01) ==
LOC: RADUSWWP 07:41
PROVIDERS: ATTEND Family Medicine
DX: K80.20 Calculus of gallbladder without cholecystitis without obstruction (principal)
CPT/HCPCS: 76700

== ENCOUNTER 2019-03-12 07:00 | Day surgery (SDC) | payer BC ==
[2019-03-10 14:32] VITALS: BMI 36.6
[~2019-03-12 07:00] MED LIST changes: -ALPRAZolam 0.25 MG TAB PO PRN; -ALPRAZolam 0.5 MG TAB PO PRN; -ASPIRIN 325 MG TAB PO ONE; -ATORVASTATIN 80 MG TAB PO ONE; +DEXAMETHASONE SOD PHOSPHATE 10 MG/ML 1 ML VIAL IV ONE; +HEPARIN SODIUM,PORCINE 5,000 UNIT/ML 1 ML VIAL SQ ONE; +LACTATED RINGERS 1,000 ML IV SCH; +MIDAZOLAM 2 MG/2 ML VIAL IV PRN; -NITROGLYCERIN SL TABS 0.4 MG TAB SUBLINGUAL PRN; +ONDANSETRON 4 MG/2 ML VIAL IVP ONE; +SCOPOLAMINE 1.5MG/72HR PATCH TRANSDERM ONE
[2019-03-12 07:27] VITALS: RESP 16; TEMP 98.3
[2019-03-12] MEDS ORDERED: LIDOCAINE 1% 20 ML VIAL (10MG/ML) FOR IV START INTRADERMA ONE (07:38)
[2019-03-12 07:49] LABS: Glucose,Whole Blood 422 mg/dL (75-99)
[2019-03-12] MEDS ORDERED: INSULIN ASPART (NovoLOG) 100 UNIT/ML VIAL SQ ONE ×2 (07:55→09:21)
[2019-03-12] MEDS ORDERED: LIDOCAINE 1% INJ 10MG/ML (20 ML MDV) ONE (09:19)
[2019-03-12] MEDS ORDERED: ROCURONIUM BROMIDE 10 MG/ML 10 ML VIAL IV ONE (09:19)
[2019-03-12] MEDS ORDERED: PROPOFOL 10 MG/ML 20 ML VIAL IV ONE (09:19)
[2019-03-12] MEDS ORDERED: GLYCOPYRROLATE 0.2 MG/ML 2 ML VIAL ONE (09:19)
[2019-03-12] MEDS ORDERED: NEOSTIGMINE 1 MG/ML 10 ML VIAL ONE (09:19)
[2019-03-12] MEDS ORDERED: MIDAZOLAM 2 MG/2 ML VIAL ONE (09:19)
[2019-03-12] MEDS ORDERED: fentaNYL (PF) 50 MCG/ML 2 ML AMP ONE (09:19)
[2019-03-12] MEDS ORDERED: SUCCINYLCHOLINE CHLORIDE 100 MG/5 ML SYR IV ONE (09:19)
[2019-03-12 09:22] LABS: Glucose,Whole Blood 391 mg/dL (75-99)
[2019-03-12] MEDS ORDERED: BUPIVACAIN-EPI 0.25%-1:200,000 30 ML VIAL SQ ONE ×2 (09:56)
[2019-03-12] MEDS: HYDROmorphone 0.5 MG/0.5 ML SYRINGE IVP PRN ×4 (10:44→11:24)
[2019-03-12 10:46] LABS: Glucose,Whole Blood 368 mg/dL (75-99)
[2019-03-12] MEDS ORDERED: hydrALAZINE HCL 20 MG/ML 1 ML VIAL IVP ONE (10:47)
[2019-03-12] MEDS ORDERED: NALOXONE 0.4 MG/ML 1 ML VIAL IV PRN (10:52)
[2019-03-12] MEDS ORDERED: HYDROcodone/APAP 5-325MG 1 EACH TAB PO PRN (10:52)
--- NOTE | 2019-03-12 10:54 | P.OP ---
Date of Procedure: 03/12/19 Procedure(s) Performed: PREOPERATIVE DIAGNOSIS: Chronic cholecystitis POSTOPERATIVE DIAGNOSIS: Same PROCEDURE: Laparoscopic cholecystectomy SURGEON: Meir EBL: Minimal see anesthesia record ANESTHESIA: Gen. COMPLICATIONS: None OPERATIVE PROCEDURE: The patient was brought and placed on the operating room table in the supine position. The patient was placed under general anesthesia at that time. The abdomen was prepped and draped in the usual sterile fashion. A small horizontal supraumbilical incision was made. The fascia was grasped with the Geovany forceps. The fascia was retracted anteriorly. The Veress needle was advanced into the peritoneal cavity. The saline drop test was normal. Insufflation took place up to 15 mmHg. A 5 mm optical trocar was advanced and the peritoneal cavity. 2 additional 5 mm trochars were placed in the right upper quadrant under direct visualization. A 12 mm trocar was advanced into the epigastric incision site. The gallbladder was retracted superiorly and laterally. The peritoneum overlying the infundibulum was bluntly dissected. The patient's cystic duct was visualized. The junction between the cystic duct common and hepatic duct was identified. The cystic duct was then divided after placement of 3 12 mm clips on the patient's side and one on the specimen side. The cystic artery was identified and clipped as well. A small vessel was seen along the gallbladder fossa and clipped as well. The gallbladder was then removed from the liver bed using electrocautery. The gallbladder was then removed from the epigastric trocar site with an Endo Catch bag. The gallbladder fossa was irrigated with saline. There was no evidence of any bleeding or biliary drainage seen. The fascia at the 12 millimeter site was closed using a Nghia-Eugene 0 Vicryl stitch. The trochars were then removed. The skin at all 4 sites was closed using a 4-0 Monocryl stitch. Skin glue was utilized on the incision sites. At the end of this procedure the sponge and needle counts were correct. DISPOSITION: Stable to the recovery room
[2019-03-12] MEDS ORDERED: ONDANSETRON 4 MG/2 ML VIAL IVP ONE ×2 (11:40→11:45)
[2019-03-12] MEDS ORDERED: PROMETHAZINE INJ 25 MG/ML 1 ML VIAL IVPB ONE (12:41)
[2019-03-12 12:43] VITALS: BP 134/73; PULSE 65
[2019-03-12 12:46] LABS: Glucose,Whole Blood 388 mg/dL (75-99)
== END 2019-03-12 13:51 | disposition home or self-care (01) ==
LOC: OR 07:00
PROVIDERS: ATTEND Surgery
DX: K80.10 Calculus of gallbladder with chronic cholecystitis without obstruction (principal); I10 Essential (primary) hypertension; I25.10 Atherosclerotic heart disease of native coronary artery without angina pectoris; E78.5 Hyperlipidemia, unspecified; E11.9 Type 2 diabetes mellitus without complications; E07.9 Disorder of thyroid, unspecified; M19.019 Primary osteoarthritis, unspecified shoulder; Z79.890 Hormone replacement therapy; Z79.4 Long term (current) use of insulin; Z79.899 Other long term (current) drug therapy; Z90.710 Acquired absence of both cervix and uterus
CPT/HCPCS: 88304; 47562; J2250; J0360; J1644; J1100; J2550; J2710; J0690; J2405; J2001; J3010; J0330; J2704; J1170

== ENCOUNTER 2020-05-03 10:08 | Observation (INO) | payer BC ==
[2020-05-03 10:16] LABS: Glucose,Whole Blood 508 mg/dL (75-99)
[2020-05-03] MEDS ORDERED: SODIUM CHLORIDE 0.9% 2,000 ML IV ONE (10:27)
[2020-05-03 10:49] LABS: Basophils # (A) 0.1 k/uL (0-0.2); Basophils % (A) 0 %; Eosinophils # (A) 0.2 k/uL (0-0.7); Eosinophils % (A) 1 %; HCT 42.5 % (34.0-46.0); HGB 13.8 gm/dL (11.4-16.0); Lymphocytes # (A) 2.7 k/uL (1.0-4.8); Lymphocytes % (A) 20 %; MCH 30.5 pg (25.0-35.0); MCHC 32.5 g/dL (31.0-37.0); Mean Platelet Volume 7.9; Monocytes # (A) 0.5 k/uL (0-1.0); Monocytes % (A) 4 %; Neutrophils # (A) 9.9 k/uL (1.3-7.7); Neutrophils % (A) 74 %; Platelet Count 299 k/uL (150-450); RBC 4.52 m/uL (3.80-5.40); RDW 12.5 % (11.5-15.5); WBC 13.5 k/uL (3.8-10.6)
--- NOTE | 2020-05-03 10:55 | ED ---
General Adult HPI - General Chief complaint: Recheck/Abnormal Lab/Rx Stated complaint: Abd Labs Sent by PCP Time Seen by Provider: 05/03/20 10:16 Source: patient, RN notes reviewed Mode of arrival: wheelchair Limitations: no limitations - History of Present Illness Initial comments: This a 54-year-old female presents emergency Department with chief complaint of elevated blood sugar. Patient states that she saw her PCP in the office today who sent here for further evaluation. Patient is a known diabetic on insulin pump. She states over the last few weeks her blood sugar has been elevated the point where she is added insulin at nighttime in the form of Lantus. Patient states that she is also placed on steroid this week which is made her blood s ugar worse secondary to finger pain after surgery. Patient denies any nausea vomiting states she just feels slightly off no chest pain or shortness breath no significant headache. No fevers or chills no dysuria, patient does have mild urinary frequency. - Related Data Home Medications Medication Instructions Recorded Confirmed Atenolol/Chlorthalidone 1 tab PO DAILY 10/15/14 05/03/20 [Atenolol-Chlorthalidone 50-25] Levothyroxine Sodium [Synthroid] 200 mcg PO DAILY 10/15/14 05/03/20 Ramipril [Altace] 10 mg PO BID 10/15/14 05/03/20 Atorvastatin [Lipitor] 40 mg PO DAILY 12/15/17 05/03/20 INSULIN LISPRO (For Pump) [humaLOG See Protocol SQ-PUMP CONTINUOUS 02/11/18 05/03/20 (For Pump)] Levothyroxine Sodium [Synthroid] 25 mcg PO DAILY 05/03/20 05/03/20 methylPREDNISolone [Medrol Dose See Taper PO DIRECTED 05/03/20 05/03/20 Pack] Allergies Allergy/AdvReac Type Severity Reaction Status Date / Time No Known Allergies Allergy Verified 05/03/20 11:18 Review of Systems ROS Statement: Those systems with pertinent positive or pertinent negative responses have been documented in the HPI. ROS Other: All systems not noted in ROS Statement are negative. Past Medical History Past Medical History: Chest Pain / Angina, Diabetes Mellitus, GERD/Reflux, Hyperlipidemia, Hypertension, Osteoarthritis (OA), Thyroid Disorder Additional Past Medical History / Comment(s): ARTHRITIS RIGHT FOOT, NECK AND SHOULDERS- RECENT CORTISONE INJECTIONS RIGHT FOOT. History of Any Multi-Drug Resistant Organisms: None Reported Date of last positivie culture/infection: 2001 MDRO Source:: unk Past Surgical History: Section, Heart Catheterization, Hysterectomy, Orthopedic Surgery, Tubal Ligation Additional Past Surgical History / Comment(s): 28 rt knee sx, kavita carpal tunnel, 7 trigger finger sx, kavita shoulder sx Past Anesthesia/Blood Transfusion Reactions: Previous Problems w/ Anesthesia, Motion Sickness, Postoperative Nausea & Vomiting (PONV) Past Psychological History: No Psychological Hx Reported Smoking Status: Never smoker Past Alcohol Use History: Rare Past Drug Use History: None Reported - Past Family History Mother Family Medical History: Myocardial Infarction ([place]) Father Family Medical History: Cancer, Myocardial Infarction ([place]) Additional Family Medical History / Comment(s): PROSTATE CANCER General Exam Limitations: no limitations General appearance: alert, in no apparent distress Head exam: Present: atraumatic, normocephalic, normal inspection Eye exam: Present: normal appearance, PERRL, EOMI. Absent: scleral icterus, conjunctival injection, periorbital swelling ENT exam: Present: normal exam, normal oropharynx, mucous membranes moist Neck exam: Present: normal inspection, full ROM. Absent: tenderness, meningismus, lymphadenopathy Respiratory exam: Present: normal lung sounds bilaterally. Absent: respiratory distress, wheezes, rales, rhonchi, stridor Cardiovascular Exam: Present: regular rate, normal rhythm, normal heart sounds. Absent: systolic murmur, diastolic murmur, rubs, gallop, clicks GI/Abdominal exam: Present: soft, normal bowel sounds. Absent: distended, tenderness, guarding, rebound, rigid Neurological exam: Present: alert, oriented X3, CN II-XII intact Skin exam: Present: warm, dry, intact, normal color. Absent: rash Course Vital Signs 05/03/20 05/03/20 10:10 12:11 Temperature 97.8 F Pulse Rate 62 66 Respiratory 16 18 Rate Blood Pressure 118/77 120/65 O2 Sat by Pulse 100 96 Oximetry Medical Decision Making - Medical Decision Making Case discussed with Norman on-call for Dr. Handy recommends the patient be kept in observation for IV fluid hydration, repeat labs and glucose monitoring. - Lab Data Result diagrams: 05/03/20 10:34 05/03/20 10:34 Lab Results 05/03/20 05/03/20 05/03/20 Range/Units 10:14 10:34 10:34 WBC 13.5 H (3.8-10.6) k/uL RBC 4.52 (3.80-5.40) m/uL Hgb 13.8 (11.4-16.0) gm/dL Hct 42.5 (34.0-46.0) % MCV 94.0 (80.0-100.0) fL MCH 30.5 (25.0-35.0) pg MCHC 32.5 (31.0-37.0) g/dL RDW 12.5 (11.5-15.5) % Plt Count 299 (150-450) k/uL MPV 7.9 Neutrophils % 74 % Lymphocytes % 20 % Monocytes % 4 % Eosinophils % 1 % Basophils % 0 % Neutrophils # 9.9 H (1.3-7.7) k/uL Lymphocytes # 2.7 (1.0-4.8) k/uL Monocytes # 0.5 (0-1.0) k/uL Eosinophils # 0.2 (0-0.7) k/uL Basophils # 0.1 (0-0.2) k/uL Sodium 132 L (137-145) mmol/L Potassium 4.6 (3.5-5.1) mmol/L Chloride 92 L (98-107) mmol/L Carbon Dioxide 26 (22-30) mmol/L Anion Gap 14 mmol/L BUN 82 H (7-17) mg/dL Creatinine 2.44 H (0.52-1.04) mg/dL Est GFR (CKD-EPI)AfAm 25 (>60 ml/min/1.73 sqM) Est GFR (CKD-EPI)NonAf 22 (>60 ml/min/1.73 sqM) Glucose 506 H* (74-99) mg/dL POC Glucose (mg/dL) 508 H (75-99) mg/dL POC Glu Brand Marketing Specialist ID Wiseheart, Carolyn Plasma Lactic Acid Angel (0.7-2.0) mmol/L Calcium 9.5 (8.4-10.2) mg/dL Magnesium 2.1 (1.6-2.3) mg/dL Total Bilirubin 0.6 (0.2-1.3) mg/dL AST 20 (14-36) U/L ALT 22 (4-34) U/L Alkaline Phosphatase 106 (38-126) U/L Total Protein 8.2 (6.3-8.2) g/dL Albumin 4.7 (3.5-5.0) g/dL Lipase 277 (23-300) U/L Urine Color Urine Appearance (Clear) Urine pH (5.0-8.0) Ur Specific Ermine (1.001-1.035) Urine Protein (Negative) Urine Glucose (UA) (Negative) Urine Ketones (Negative) Urine Blood (Negative) Urine Nitrite (Negative) Urine Bilirubin (Negative) Urine Urobilinogen (<2.0) mg/dL Ur Leukocyte Esterase (Negative) Urine RBC (0-5) /hpf Urine WBC (0-5) /hpf Ur Squamous Epith Cells (0-4) /hpf Hyaline Casts (0-2) /lpf Urine Mucus (None) /hpf Acetone, Qual Negative (Negative) 05/03/20 05/03/20 05/03/20 Range/Units 10:34 10:34 12:58 WBC (3.8-10.6) k/uL RBC (3.80-5.40) m/uL Hgb (11.4-16.0) gm/dL Hct (34.0-46.0) % MCV (80.0-100.0) fL MCH (25.0-35.0) pg MCHC (31.0-37.0) g/dL RDW (11.5-15.5) % Plt Count (150-450) k/uL MPV Neutrophils % % Lymphocytes % % Monocytes % % Eosinophils % % Basophils % % Neutrophils # (1.3-7.7) k/uL Lymphocytes # (1.0-4.8) k/uL Monocytes # (0-1.0) k/uL Eosinophils # (0-0.7) k/uL Basophils # (0-0.2) k/uL Sodium (137-145) mmol/L Potassium (3.5-5.1) mmol/L Chloride (98-107) mmol/L Carbon Dioxide (22-30) mmol/L Anion Gap mmol/L BUN (7-17) mg/dL Creatinine (0.52-1.04) mg/dL Est GFR (CKD-EPI)AfAm (>60 ml/min/1.73 sqM) Est GFR (CKD-EPI)NonAf (>60 ml/min/1.73 sqM) Glucose (74-99) mg/dL POC Glucose (mg/dL) 467 H (75-99) mg/dL POC Glu Brand Marketing Specialist ID Sully Skelton Plasma Lactic Acid Angel 1.8 (0.7-2.0) mmol/L Calcium (8.4-10.2) mg/dL Magnesium (1.6-2.3) mg/dL Total Bilirubin (0.2-1.3) mg/dL AST (14-36) U/L ALT (4-34) U/L Alkaline Phosphatase (38-126) U/L Total Protein (6.3-8.2) g/dL Albumin (3.5-5.0) g/dL Lipase (23-300) U/L Urine Color Light Yellow Urine Appearance Cloudy H (Clear) Urine pH 5.0 (5.0-8.0) Ur Specific Ermine 1.010 (1.001-1.035) Urine Protein Trace H (Negative) Urine Glucose (UA) 4+ H (Negative) Urine Ketones Negative (Negative) Urine Blood Negative (Negative) Urine Nitrite Negative (Negative) Urine Bilirubin Negative (Negative) Urine Urobilinogen <2.0 (<2.0) mg/dL Ur Leukocyte Esterase Negative (Negative) Urine RBC <1 (0-5) /hpf Urine WBC 2 (0-5) /hpf Ur Squamous Epith Cells 5 H (0-4) /hpf Hyaline Casts 13 H (0-2) /lpf Urine Mucus Rare H (None) /hpf Acetone, Qual (Negative) 05/03/20 Range/Units 13:43 WBC (3.8-10.6) k/uL RBC (3.80-5.40) m/uL Hgb (11.4-16.0) gm/dL Hct (34.0-46.0) % MCV (80.0-100.0) fL MCH (25.0-35.0) pg MCHC (31.0-37.0) g/dL RDW (11.5-15.5) % Plt Count (150-450) k/uL MPV Neutrophils % % Lymphocytes % % Monocytes % % Eosinophils % % Basophils % % Neutrophils # (1.3-7.7) k/uL Lymphocytes # (1.0-4.8) k/uL Monocytes # (0-1.0) k/uL Eosinophils # (0-0.7) k/uL Basophils # (0-0.2) k/uL Sodium (137-145) mmol/L Potassium (3.5-5.1) mmol/L Chloride (98-107) mmol/L Carbon Dioxide (22-30) mmol/L Anion Gap mmol/L BUN (7-17) mg/dL Creatinine (0.52-1.04) mg/dL Est GFR (CKD-EPI)AfAm (>60 ml/min/1.73 sqM) Est GFR (CKD-EPI)NonAf (>60 ml/min/1.73 sqM) Glucose (74-99) mg/dL POC Glucose (mg/dL) 403 H (75-99) mg/dL POC Glu Brand Marketing Specialist ID Polina Ocampo Plasma Lactic Acid Angel (0.7-2.0) mmol/L Calcium (8.4-10.2) mg/dL Magnesium (1.6-2.3) mg/dL Total Bilirubin (0.2-1.3) mg/dL AST (14-36) U/L ALT (4-34) U/L Alkaline Phosphatase (38-126) U/L Total Protein (6.3-8.2) g/dL Albumin (3.5-5.0) g/dL Lipase (23-300) U/L Urine Color Urine Appearance (Clear) Urine pH (5.0-8.0) Ur Specific Ermine (1.001-1.035) Urine Protein (Negative) Urine Glucose (UA) (Negative) Urine Ketones (Negative) Urine Blood (Negative) Urine Nitrite (Negative) Urine Bilirubin (Negative) Urine Urobilinogen (<2.0) mg/dL Ur Leukocyte Esterase (Negative) Urine RBC (0-5) /hpf Urine WBC (0-5) /hpf Ur Squamous Epith Cells (0-4) /hpf Hyaline Casts (0-2) /lpf Urine Mucus (None) /hpf Acetone, Qual (Negative) Disposition Clinical Impression: Acute kidney injury, Weakness, Hyperglycemia Disposition: ADMITTED IP TO THIS HOSP Condition: Fair Referrals: Daryl Handy MD [Primary Care Provider] - 1-2 days
[2020-05-03 11:04] LABS: ALT 22 U/L (4-34); AST 20 U/L (14-36); African American GFR (CKD) 25 (>60 ml/min/1.73 sqM); Albumin 4.7 g/dL (3.5-5.0); Alkaline Phosphatase 106 U/L (38-126); Anion Gap 14 mmol/L; Blood Urea Nitrogen 82 mg/dL (7-17); Calcium 9.5 mg/dL (8.4-10.2); Carbon Dioxide 26 mmol/L (22-30); Chloride 92 mmol/L (98-107); Lipase 277 U/L (23-300); Magnesium 2.1 mg/dL (1.6-2.3); Non-African American GFR(CKD) 22 (>60 ml/min/1.73 sqM); Potassium 4.6 mmol/L (3.5-5.1); Sodium 132 mmol/L (137-145); Total Bilirubin 0.6 mg/dL (0.2-1.3); Total Protein 8.2 g/dL (6.3-8.2)
[2020-05-03 11:18] LABS: Glucose 506 mg/dL (74-99)
[2020-05-03 12:59] LABS: Glucose,Whole Blood 467 mg/dL (75-99)
[2020-05-03] MEDS ORDERED: INSULIN REGULAR 100 UNIT/ML VIAL IV ONE (13:02)
[2020-05-03 13:15] LABS: Appearance,Urine Cloudy (Clear); Bilirubin,Urine Negative (Negative); Blood,Urine Negative (Negative); Color,Urine Light Yellow; Glucose,Urine (UA) 4+ (Negative); Hyaline Casts,Urine 13 /lpf (0-2); Ketones,Urine Negative (Negative); Leukocyte Esterase,Urine Negative (Negative); Mucus,Urine Rare /hpf; Nitrite,Urine Negative (Negative); Protein,Urine Trace (Negative); RBC,Urine <1 /hpf (0-5); Squamous Epithelial Cell,Urine 5 /hpf (0-4); Urobilinogen,Urine <2.0 mg/dL (<2.0); WBC,Urine 2 /hpf (0-5)
[2020-05-03 13:44] LABS: Glucose,Whole Blood 403 mg/dL (75-99)
[2020-05-03] MEDS ORDERED: NALOXONE 0.4 MG/ML 1 ML VIAL IV PRN (14:04)
[2020-05-03] MEDS ORDERED: ACETAMINOPHEN TAB 325 MG TAB PO PRN (14:04)
[2020-05-03] MEDS ORDERED: ONDANSETRON 4 MG/2 ML VIAL IVP PRN (14:04)
[2020-05-03] MEDS: SODIUM CHLORIDE 0.9% 1,000 ML IV SCH ×2 (14:53→21:30)
[2020-05-03 17:33] LABS: Glucose,Whole Blood 377 mg/dL (75-99)
[2020-05-03] MEDS: INSULIN ASPART (NovoLOG) 100 UNIT/ML VIAL SQ SCH ×2 (17:39→21:28)
[2020-05-03 18:26] LABS: ALT 19 U/L (4-34); AST 18 U/L (14-36); African American GFR (CKD) 32 (>60 ml/min/1.73 sqM); Albumin 3.6 g/dL (3.5-5.0); Albumin/Globulin Ratio 1.2; Alkaline Phosphatase 92 U/L (38-126); Anion Gap 8 mmol/L; Blood Urea Nitrogen 73 mg/dL (7-17); Calcium 8.5 mg/dL (8.4-10.2); Carbon Dioxide 25 mmol/L (22-30); Chloride 102 mmol/L (98-107); Glucose 418 mg/dL (74-99); Non-African American GFR(CKD) 28 (>60 ml/min/1.73 sqM); Potassium 4.4 mmol/L (3.5-5.1); Sodium 135 mmol/L (137-145); Total Bilirubin 0.4 mg/dL (0.2-1.3); Total Protein 6.6 g/dL (6.3-8.2)
[2020-05-03] MEDS ORDERED: lisinopriL 20 MG TAB PO SCH (21:00)
[2020-05-03 21:20] LABS: Glucose,Whole Blood 380 mg/dL (75-99)
[2020-05-04] MEDS: SODIUM CHLORIDE 0.9% 1,000 ML IV SCH ×2 (04:46→12:54)
[2020-05-04 06:27] LABS: Basophils % (A) 0 %; Eosinophils # (A) 0.1 k/uL (0-0.7); Eosinophils % (A) 2 %; HGB 11.5 gm/dL (11.4-16.0); Lymphocytes % (A) 29 %; MCH 31.7 pg (25.0-35.0); MCHC 33.7 g/dL (31.0-37.0); Mean Platelet Volume 7.6; Monocytes # (A) 0.3 k/uL (0-1.0); Monocytes % (A) 5 %; Neutrophils # (A) 4.4 k/uL (1.3-7.7); Neutrophils % (A) 63 %; Platelet Count 190 k/uL (150-450); RBC 3.62 m/uL (3.80-5.40); RDW 12.1 % (11.5-15.5); WBC 6.9 k/uL (3.8-10.6)
[2020-05-04] MEDS ORDERED: LEVOTHYROXINE 25 MCG TAB PO SCH (06:30)
[2020-05-04] MEDS ORDERED: LEVOTHYROXINE 100 MCG TAB PO SCH (06:30)
[2020-05-04 06:40] LABS: ALT 17 U/L (4-34); AST 15 U/L (14-36); African American GFR (CKD) 37 (>60 ml/min/1.73 sqM); Albumin 3.2 g/dL (3.5-5.0); Albumin/Globulin Ratio 1.2; Alkaline Phosphatase 76 U/L (38-126); Anion Gap 7 mmol/L; Blood Urea Nitrogen 66 mg/dL (7-17); Calcium 8.2 mg/dL (8.4-10.2); Carbon Dioxide 22 mmol/L (22-30); Chloride 107 mmol/L (98-107); Globulin 2.7 g/dL; Glucose 282 mg/dL (74-99); Magnesium 1.8 mg/dL (1.6-2.3); Non-African American GFR(CKD) 32 (>60 ml/min/1.73 sqM); Potassium 4.6 mmol/L (3.5-5.1); Sodium 136 mmol/L (137-145); Total Bilirubin 0.3 mg/dL (0.2-1.3); Total Protein 5.9 g/dL (6.3-8.2)
[2020-05-04 06:53] LABS: Glucose,Whole Blood 271 mg/dL (75-99)
[2020-05-04 07:59] VITALS: TEMP 97.8
[2020-05-04 08:08] LABS: Glucose,Whole Blood 254 mg/dL (75-99)
[2020-05-04] MEDS: INSULIN ASPART (NovoLOG) 100 UNIT/ML VIAL SQ SCH ×2 (08:38→13:03)
[2020-05-04] MEDS ORDERED: atenoloL 50 MG TAB PO SCH (09:00)
[2020-05-04] MEDS ORDERED: CHLORTHALIDONE 25 MG TAB PO SCH (09:00)
[2020-05-04] MEDS ORDERED: ATORVASTATIN 40 MG TAB PO SCH (09:00)
[2020-05-04 11:05] LABS: Glucose,Whole Blood 311 mg/dL (75-99)
[2020-05-04] MEDS ORDERED: SODIUM CHLORIDE 0.9% 1,000 ML IV SCH (12:45)
[2020-05-04] MEDS ORDERED: INSULIN REGULAR 100 UNIT/ML VIAL SQ ONE (12:45)
[2020-05-04 14:47] VITALS: BP 125/79; PULSE 68; RESP 18
[2020-05-04 15:49] LABS: African American GFR (CKD) 45 (>60 ml/min/1.73 sqM); Anion Gap 7 mmol/L; Blood Urea Nitrogen 54 mg/dL (7-17); Calcium 8.1 mg/dL (8.4-10.2); Carbon Dioxide 24 mmol/L (22-30); Chloride 107 mmol/L (98-107); Glucose 339 mg/dL (74-99); Non-African American GFR(CKD) 39 (>60 ml/min/1.73 sqM); Potassium 4.8 mmol/L (3.5-5.1); Sodium 138 mmol/L (137-145)
[2020-05-04 17:16] LABS: Glucose,Whole Blood 257 mg/dL (75-99)
--- NOTE | 2020-05-04 18:52 | P.HPIM ---
History of Present Illness H&P Date: 05/04/20 Chief Complaint: Hyperglycemia/dehydration/acute kidney injury 54-year-old female was seen in our office on 05/03/2020found to have blood sugars greater than 500 with associated symptoms of polydipsia, polyuria and polyphagia; patient was sent to the emergency department for further diagnostic workup and admission. Patient found to have elevated blood sugars in the 500s, acute on chronic kidney injury, and moderate to severe dehydration. Diagnostic testing revealed non- ketoacidosis, and close iron gap. Patient has significant medical history of type 1 diabetes, hypertension, hyperlipidemia, hypothyroidism, GERD/reflux, osteoarthritis, and several orthopedic surgeries. Patient denies fever, chills, chest discomfort, palpitations, abdominal pain, nausea, vomiting, or diarrhea Review of Systems Constitutional: Reports weakness Ears, nose, mouth and throat: Reports sore throat Cardiovascular: Reports lightheadedness Musculoskeletal: Reports morning stiffness Psychiatric: Reports anxiety Endocrine: Reports polydipsia, Reports polyphagia, Reports polyuria Past Medical History Past Medical History: Chest Pain / Angina, Diabetes Mellitus, GERD/Reflux, Hy perlipidemia, Hypertension, Osteoarthritis (OA), Thyroid Disorder Additional Past Medical History / Comment(s): ARTHRITIS RIGHT FOOT, NECK AND SHOULDERS- RECENT CORTISONE INJECTIONS RIGHT FOOT. History of Any Multi-Drug Resistant Organisms: None Reported Date of last positivie culture/infection: 2001 MDRO Source:: unk Past Surgical History: Section, Heart Catheterization, Hysterectomy, Orthopedic Surgery, Tubal Ligation Additional Past Surgical History / Comment(s): 28 rt knee sx, kavita carpal tunnel, 7 trigger finger sx, kavita shoulder sx Past Anesthesia/Blood Transfusion Reactions: Previous Problems w/ Anesthesia, Motion Sickness, Postoperative Nausea & Vomiting (PONV) Past Psychological History: No Psychological Hx Reported Additional Psychological History / Comment(s): . Smoking Status: Never smoker Past Alcohol Use History: Rare Additional Past Alcohol Use History / Comment(s): quit smoking 2011, smoked 2ppd from age 15 Past Drug Use History: None Reported Additional Drug Use History / Comment(s): CBD USE - Past Family History Mother Family Medical History: Myocardial Infarction ([place]) Father Family Medical History: Cancer, Myocardial Infarction ([place]) Additional Family Medical History / Comment(s): PROSTATE CANCER Medications and Allergies Home Medications and Allergies Comment(s): Medications and ALLERGIES reviewed Home Medications Medication Instructions Recorded Confirmed Type Atenolol/Chlorthalidone 1 tab PO DAILY 10/15/14 05/03/20 History [Atenolol-Chlorthalidone 50-25] Levothyroxine Sodium [Synthroid] 200 mcg PO DAILY 10/15/14 05/03/20 History Ramipril [Altace] 10 mg PO BID 10/15/14 05/03/20 History Atorvastatin [Lipitor] 40 mg PO DAILY 12/15/17 05/03/20 History INSULIN LISPRO (For Pump) [humaLOG See Protocol SQ-PUMP CONTINUOUS 02/11/18 05/03/20 History (For Pump)] Levothyroxine Sodium [Synthroid] 25 mcg PO DAILY 05/03/20 05/03/20 History Amoxicillin/Potassium Clav 1 tab PO BID 1 Days #20 tab 05/04/20 Rx [Augmentin 875-125 Tablet] Allergies Allergy/AdvReac Type Severity Reaction Status Date / Time No Known Allergies Allergy Verified 05/03/20 11:18 Physical Exam Vitals: Vital Signs Temp Pulse Resp BP Pulse Ox 05/04/20 14:47 97.8 F 68 18 125/79 99 05/04/20 13:48 18 05/04/20 07:00 97.8 F 66 20 122/71 98 05/04/20 01:51 97.7 F 69 18 155/90 99 05/03/20 20:00 97.6 F 62 18 146/79 100 Intake and Output 05/04/20 05/04/20 05/04/20 06:59 14:59 22:59 Intake Total 600 Balance 600 Intake: Oral 600 Other: Voiding Method Toilet Toilet # Voids 1 - Constitutional General appearance: cooperative - EENT Eyes: EOMI, PERRLA ENT: pharyngeal erythema Ears: bilateral: normal - Neck Neck: normal ROM Carotids: bilateral: upstroke normal Thyroid: bilateral: normal size - Respiratory Respiratory: bilateral: CTA - Cardiovascular Normal sinus pattern Heart rate: 67 Rhythm: regular Heart sounds: normal: S1, S2 dorsalis pedis Peripheral Pulses: bilateral: Normal radial pulse Peripheral Pulses: bilateral: Normal - Gastrointestinal General gastrointestinal: normal bowel sounds - Integumentary Integumentary: normal turgor - Neurologic Neurologic: CNII-XII intact - Musculoskeletal Musculoskeletal: gait normal - Psychiatric Psychiatric: A&O x's 3, appropriate affect, intact judgment & insight Results CBC & Chem 7: 05/04/20 05:58 05/04/20 14:44 Labs: Abnormal Lab Results - Last 24 Hours (Table) 05/03/20 05/04/20 05/04/20 Range/Units 21:18 05:58 05:58 RBC 3.62 L (3.80-5.40) m/uL Sodium 136 L (137-145) mmol/L BUN 66 H (7-17) mg/dL Creatinine 1.77 H (0.52-1.04) mg/dL Glucose 282 H (74-99) mg/dL POC Glucose (mg/dL) 380 H (75-99) mg/dL Osmolality 319 H (280-301) mosm/kg Calcium 8.2 L (8.4-10.2) mg/dL Total Protein 5.9 L (6.3-8.2) g/dL Albumin 3.2 L (3.5-5.0) g/dL 05/04/20 05/04/20 05/04/20 Range/Units 06:52 08:06 11:04 RBC (3.80-5.40) m/uL Sodium (137-145) mmol/L BUN (7-17) mg/dL Creatinine (0.52-1.04) mg/dL Glucose (74-99) mg/dL POC Glucose (mg/dL) 271 H 254 H 311 H (75-99) mg/dL Osmolality (280-301) mosm/kg Calcium (8.4-10.2) mg/dL Total Protein (6.3-8.2) g/dL Albumin (3.5-5.0) g/dL 05/04/20 05/04/20 Range/Units 14:44 17:15 RBC (3.80-5.40) m/uL Sodium (137-145) mmol/L BUN 54 H (7-17) mg/dL Creatinine 1.51 H (0.52-1.04) mg/dL Glucose 339 H (74-99) mg/dL POC Glucose (mg/dL) 257 H (75-99) mg/dL Osmolality (280-301) mosm/kg Calcium 8.1 L (8.4-10.2) mg/dL Total Protein (6.3-8.2) g/dL Albumin (3.5-5.0) g/dL Microbiology - Last 24 Hours (Table) 05/03/20 10:30 Urine Culture - Preliminary Urine,Clean Catch Thrombosis Risk Factor Assmnt - Choose All That Apply Each Factor Represents 1 point: Age 41-60 years Other Risk Factors: No Other congenital or acquired thrombophilia - If yes, enter type in comment: No Thrombosis Risk Factor Assessment Total Risk Factor Score: 1 Thrombosis Risk Factor Assessment Level: Low Risk Assessment and Plan Assessment: Type 1 diabetesinsulin pump dependent Hypertension Hypothyroidism Dyslipidemia GERD Osteoarthritis Several orthopedic surgeries History of chest pain/angina-cardiac catheterization with no angioplasty or stents in the past Plan: HyperglycemiaIV hydration of normal saline at 200 ML's an hour, high intensity sliding scale of insulin Acute kidney injuryhold nephrotoxic drugs, likely prerenalIV hydration Generalized weaknesscontinue IV hydration due to dehydration and hyperglycemia Hypertension continue atenolol Hyperlipidemia continue statin therapy Hypothyroidism continue home medications Continue to monitor diagnostics and vital signs Continue home medications Hopeful discharge within 24 hours Time with Patient: Greater than 30
--- NOTE | 2020-05-04 18:58 | P.DS ---
Providers Date of admission: 05/03/20 14:04 Expected date of discharge: 05/04/20 Attending physician: Daryl Handy Primary care physician: Daryl Handy Hospital Course: 54-year-old female was evaluated in the office on 05/03/2020 found to have blood sugars in the 500s with associated symptoms of nausea and vomiting. Patient endorses polydipsia, polyphagia and polyuria in the office. Patient was sent to the emergency department for further diagnostic workup and admission. Patient was found to be hyperglycemic with acute kidney injury and generalized weakness. Patient was found not to be in ketoacidosis. Patient required IV hydration and high intensity sliding scale of insulin. Patient tolerated medical treatment plan well. Patient to follow-up with our services within 1-2 days. Due to patient's multiple complexity of comorbidities prognosis guarded upon discharge. Assessment: Type 1 diabetesinsulin pump dependent with basal insulin at night INDER on chronic kidney failure stage II to 3 Hypertension Hyperlipidemia Hypothyroidism Chest pain/anginahistory of cardiac catheterization with no angioplasty or stents GERD Osteoporosis Several orthopedic procedures Full code Health Concerns: History of poor glycemic control Pertinent Studies: No pertinent studies Procedures: No procedures performed during hospital stay Patient Condition at Discharge: Fair Plan - Discharge Summary Discharge Rx Participant: Yes New Discharge Prescriptions: New Amoxicillin/Potassium Clav [Augmentin 875-125 Tablet] 1 tab PO BID 1 Days #20 tab Continue Ramipril [Altace] 10 mg PO BID Levothyroxine Sodium [Synthroid] 200 mcg PO DAILY Atenolol/Chlorthalidone [Atenolol-Chlorthalidone 50-25] 1 tab PO DAILY Atorvastatin [Lipitor] 40 mg PO DAILY INSULIN LISPRO (For Pump) [humaLOG (For Pump)] See Protocol SQ-PUMP CONTINUOUS Levothyroxine Sodium [Synthroid] 25 mcg PO DAILY Discontinued methylPREDNISolone [Medrol Dose Pack] See Taper PO DIRECTED Discharge Medication List Atenolol/Chlorthalidone [Atenolol-Chlorthalidone 50-25] 1 tab PO DAILY 10/15/14 [History] Levothyroxine Sodium [Synthroid] 200 mcg PO DAILY 10/15/14 [History] Ramipril [Altace] 10 mg PO BID 10/15/14 [History] Atorvastatin [Lipitor] 40 mg PO DAILY 12/15/17 [History] INSULIN LISPRO (For Pump) [humaLOG (For Pump)] See Protocol SQ-PUMP CONTINUOUS 11/21/18 [History] Levothyroxine Sodium [Synthroid] 25 mcg PO DAILY 05/03/20 [History] Amoxicillin/Potassium Clav [Augmentin 875-125 Tablet] 1 tab PO BID 1 Days #20 tab 05/04/20 [Rx] Follow up Appointment(s)/Referral(s): Daryl Handy MD [Primary Care Provider] - 1-2 days Discharge Disposition: HOME SELF-CARE
--- NOTE | 2020-05-10 15:02 | CDI ---
Date: 05.10.20 CDS/Energy Control Officer Name: Sakshi Rg Phone: If any questions, call Adriana Yang Inspector Final [employer] at [phone] Patient Name: Mario Gutiérrez Admit Date Discharge Date: ATTENTION: The [facility] Coding Staff appreciate your assistance in clarifying documentation. Please respond to the clarification below the line at the bottom and electronically sign. The [facility] Coding staff will review the response and follow-up if needed. Please note: Queries are made part of the Legal Health Record. If you have any questions, please contact the Inspector Final Assembly Electrical. Dear REGAN Edwards or Dr. Handy In order to code to the greatest specificity and for the greatest reimbursement I need the following information: You have documented Chronic Kidney disease II to 3 in your discharge summary under assessment. Please specify which stage of CKD. __stage II __stage III Thank you for your kind consideration. MTDD
== END 2020-05-04 18:03 | disposition home or self-care (01) ==
LOC: EC 10:08 → 6NMEDSUR 14:04 → INTOOBSV 14:04 → 6NMEDSUR 16:14
PROVIDERS: ADMIT Family Medicine; ATTEND Family Medicine
DX: N17.9 Acute kidney failure, unspecified (principal); E10.65 Type 1 diabetes mellitus with hyperglycemia; I10 Essential (primary) hypertension; E78.5 Hyperlipidemia, unspecified; E03.9 Hypothyroidism, unspecified; K21.9 Gastro-esophageal reflux disease without esophagitis; M81.0 Age-related osteoporosis without current pathological fracture; M19.90 Unspecified osteoarthritis, unspecified site; M19.071 Primary osteoarthritis, right ankle and foot; M47.892 Other spondylosis, cervical region; M19.012 Primary osteoarthritis, left shoulder; I12.9 Hypertensive chronic kidney disease with stage 1 through stage 4 chronic kidney disease, or unspecified chronic kidney disease; E10.22 Type 1 diabetes mellitus with diabetic chronic kidney disease; M19.011 Primary osteoarthritis, right shoulder; N18.2 Chronic kidney disease, stage 2 (mild); Z79.4 Long term (current) use of insulin; Z96.41 Presence of insulin pump (external) (internal); Z98.890 Other specified postprocedural states; Z79.899 Other long term (current) drug therapy; Z79.890 Hormone replacement therapy; Z86.19 Personal history of other infectious and parasitic diseases; Z90.710 Acquired absence of both cervix and uterus; Z98.51 Tubal ligation status; Z91.89 Other specified personal risk factors, not elsewhere classified; Z87.898 Personal history of other specified conditions; Z87.891 Personal history of nicotine dependence; Z82.49 Family history of ischemic heart disease and other diseases of the circulatory system; Z80.42 Family history of malignant neoplasm of prostate
CPT/HCPCS: 96361 ×3; 96360; 99284; 36415; 83930; 80053 ×2; 80048; 82009; 83605; 83690; 83735 ×2; 85025 ×2; 81001; 87086; G0378 ×2

== ENCOUNTER → 2020-11-09 | Outpatient (CLI) | payer BC ==
--- NOTE | 2020-11-09 17:09 | US ---
EXAMINATION TYPE: US kidneys/renal and bladder DATE OF EXAM: 11/09/2020 COMPARISON: US 11/20/2018 CLINICAL HISTORY: N18.32 STAGE 3 CHR KIDNEY DISEASE. EXAM MEASUREMENTS: Right Kidney: 9.7 x 4.6 x 3.7 cm Left Kidney: 10.7 x 5.0 x 4.5 cm Right Kidney: No hydronephrosis or masses seen Left Kidney: No hydronephrosis or masses seen Bladder: wnl, not fully distended Bilateral Jets seen: No There is no evidence for hydronephrosis at this point in time. No nephrolithiasis is seen. Some meseret ical thinning bilaterally is present. No masses are identified on images saved. The urinary bladder is not greatly distended. IMPRESSION: No hydronephrosis is noted bilaterally.
== END | disposition home or self-care (01) ==
LOC: RADUSWWP 16:19
PROVIDERS: ATTEND Internal Medicine
DX: N18.32 Chronic kidney disease, stage 3b (principal)
CPT/HCPCS: 76770

== ENCOUNTER 2022-01-18 09:19 | Day surgery (SDC) | payer BC ==
[~2022-01-18 09:19] MED LIST changes: -DEXAMETHASONE SOD PHOSPHATE 10 MG/ML 1 ML VIAL IV ONE; +DEXAMETHASONE SOD PHOSPHATE 4 MG/ML 1 ML VIAL IV ONE; -HEPARIN SODIUM,PORCINE 5,000 UNIT/ML 1 ML VIAL SQ ONE; +HYDROmorphone 0.5 MG/0.5 ML SYRINGE IVP PRN; +LIDOCAINE 1% (10MG/ML) FOR IV START INTRADERMA PRN; -SCOPOLAMINE 1.5MG/72HR PATCH TRANSDERM ONE
[2022-01-18 10:06] LABS: Glucose,Whole Blood 99 mg/dL (70-110)
[2022-01-18 10:52] LABS: Albumin 4.1 g/dL (3.5-5.0); Total Bilirubin 0.5 mg/dL (0.2-1.3); Total Protein 6.8 g/dL (6.3-8.2)
[2022-01-18 10:59] LABS: Glucose,Whole Blood 140 mg/dL (70-110)
[2022-01-18] MEDS ORDERED: MIDAZOLAM 2 MG/2 ML VIAL IVP ONE (10:59)
[2022-01-18] MEDS ORDERED: fentaNYL (PF) 50 MCG/ML 2 ML AMP IVP ONE (11:00)
[2022-01-18] MEDS ORDERED: SUCCINYLCHOLINE CHLORIDE 200 MG/10 ML VIAL IV ONE (11:06)
[2022-01-18] MEDS ORDERED: LIDOCAINE 2% INJ 20 MG/ML (2 ML VIAL) ONE (11:06)
[2022-01-18] MEDS ORDERED: fentaNYL (PF) 50 MCG/ML 2 ML AMP ONE (11:06)
[2022-01-18] MEDS ORDERED: LIDOCAINE 4% LTA KIT (4 ML) TOPICAL ONE (11:06)
[2022-01-18] MEDS ORDERED: SODIUM CHLORIDE 0.9% (PF) 10 ML VIAL ONE (11:06)
[2022-01-18] MEDS ORDERED: ROPIVACAINE 5 MG/ML 30 ML VIAL ONE (11:06)
[2022-01-18] MEDS ORDERED: ePHEDrine 50 MG/ML 1 ML VIAL ONE (11:06)
[2022-01-18] MEDS ORDERED: PROPOFOL 10 MG/ML 20 ML VIAL IV ONE (11:06)
--- NOTE | 2022-01-18 11:43 | P.ANPRN ---
Procedure Note - Anesthesia - Nerve Block Performed Right Adductor Canal Time Out Performed: Yes (:56) Date of Procedure: 01/18/22 Procedure Start Time: Procedure Stop Time: 11:02 Location of Patient: PreOp Indication: Acute Post-Operative Pain, Requested by Surgeon (Dr Powers) Sedation Type: Sedate with meaningful contact maintained Preparation: Sterile Prep Position: Supine Catheter: None Needle Types: Pajunk Needle Gauge: 21 Ultrasound used to visualize needle placement: Yes Ultrasound used to observe medication spread: Yes Injectate: 0.5% Ropivacaine (see comment for volume) (15cc) Blood Aspirated: No Pain Paresthesia on Injection Noted: No Resistance on Injection: Normal Image Stored and Saved: Yes Events: Uneventful and Well Tolerated
--- NOTE | 2022-01-18 11:44 | P.ANPRN ---
Procedure Note - Anesthesia - Nerve Block Performed Right Popliteal Time Out Performed: Yes Date of Procedure: 01/18/22 Procedure Start Time: 11:03 Procedure Stop Time: 11:08 Location of Patient: PreOp Indication: Acute Post-Operative Pain, Requested by Surgeon (Dr Powers) Sedation Type: Sedate with meaningful contact maintained Preparation: Sterile Prep Position: Left Lateral Catheter: None Needle Types: Pajunk Needle Gauge: 21 Ultrasound used to visualize needle placement: Yes Ultrasound used to observe medication spread: Yes Injectate: 0.5% Ropivacaine (see comment for volume) (15cc +5cc PF Normal saline) Blood Aspirated: No Pain Paresthesia on Injection Noted: No Resistance on Injection: Normal Image Stored and Saved: Yes Events: Uneventful and Well Tolerated
[2022-01-18 13:01] VITALS: RESP 16; TEMP 97.3
[2022-01-18 13:05] LABS: Glucose,Whole Blood 186 mg/dL (70-110)
[2022-01-18] MEDS ORDERED: LACTATED RINGERS 1,000 ML IV ONE ×2 (13:31)
[2022-01-18 14:47] VITALS: BP 130/73; PULSE 75
--- NOTE | 2022-01-18 15:08 | P.OP ---
Date of Procedure: 01/18/22 Preoperative Diagnosis: 1. Primary osteoarthritis right midfoot 2. Gastroc equinus right Postoperative Diagnosis: 1. Same 2. Same Procedure(s) Performed: 1. Midtarsal joint arthrodesis (multiple joints) right foot 2. Gastroc recession right leg 3. Bone marrow aspiration right leg Implants: 2 compression swati ActiV bone allograft Anesthesia: SILVIA Surgeon: Joaquin Powers IV fluids (ml): 5 Pathology: none sent Condition: stable Disposition: PACU Description of Procedure: Prior to the patient being brought to the operating room, anesthesia administered a nerve block in the right lower extremity. The patient was then brought into the operative room and placed on table supine position. Timeout was taken to confirm correct patient identifiers, correct site of surgery, and correct procedure. When all staff in the room were in agreement with the timeout, the patient was induced placed under general anesthesia a well-padded tourniquet was placed on the right thigh and then the right leg was prepped and draped usual manner. Attention was directed the anterior medial aspect of the right leg just superior to the ankle joint. Small stab incision was made and deepened down to the bony layer. Sharp trocar was then used to penetrate the cortical bone of the tibia into the medullary canal. The trocar was removed and then a syringe attached to the cannula to dry out approximately 5 mL of bone marrow aspirate. That was sent to the back table and mixed with the bone allograft. The right leg was exsanguinated and the tourniquet inflated to 250 mmHg. Under direct fluoroscopic visualization, a metallic marker was used to locate the navicular cuneiform joint. Once located a small stab incision was made dorsal to plantar bluntly dissected down to the periosteum. 3.1 mm rotary elier was then inserted and used to denude the cartilage and bone from the joint surfaces of the medial and intermediate cuneiforms and navicular. Fluoroscopic imaging confirmed resection of the bony surfaces. Attention was then directed to the dorsal aspect of the foot were metallic marker was used to locate the intercuneiform joint between the medial and intermediate cuneiforms. Small stab incision was made through the skin and bluntly dissected down the periosteum. A retractor was used to protect and retract the extensor hallucis longus tendon. Under direct fluoroscopic visualization the rotary bur was inserted into the intercuneiform joint. The bur was then activated and the bony and cartilaginous surfaces between the bony structures was completely denuded. Once the joint prep was completed, the areas were thoroughly irrigated with antibiotic saline. A mixture of the bone marrow aspirate and allograft was then placed between the bony segments for the fusion. Once that was completed the medial excision was extended to level for the placement of the stable. 19 mm with staple drill guide was then used to drill the holes for the placement of the staple legs. This is done under fluoroscopy to make sure that the swati on either side of the arthrodesis site. The first hole was drilled drilled and then a pin inserted and then the foot was compressed and the other pin inserted. The drill guide was removed as were the pins and then the staple was inserted with the legs stretched. The well point pumping supervisor was removed and the legs are a lot deployed compressed the arthrodesis site. Fluoroscopy confirmed the compression at the arthrodesis site and proper placement of the staple. A similar process was done through the dorsal incision for the placement of the intercuneiform stable. A large clamp was used to compress the intercuneiform joint and then drill holes were made for an 18 mm with screw staple swati inserted with the legs stretched and then allowed to deploy once implanted. Fluoroscopy confirmed that there was good compression across the arthrodesis sites. All surgical sites were thoroughly irrigated with antibiotic saline. Deep closure was done with 2- 0 Vicryl subcu closure done for Monocryl skin closure done with swati Attention was directed over the posterior aspect of the leg, where the gastroc recession was performed. A linear midline incision was made distal to the gastroc muscle belly. The incision was deepened down to the subcutaneous layer careful to identify, avoid, and retract any neurovascular structures and cauterize any bleeding vessels. Blunt dissection was carried down to level the deep fascia. The fascia was incised and then bluntly dissected off the gastroc aponeurosis. A transverse incision was made through the aponeurosis from medial to lateral. Once completed the ankle was dorsiflexed and a visible gap. And the aponeurosis, indicating a full release. The wound is thoroughly irrigated. The subcutaneous layer was closed with 4-0 Vicryl. And skin closure done with swati..
== END 2022-01-18 15:15 | disposition home or self-care (01) ==
LOC: OR 09:19
PROVIDERS: ATTEND Podiatrist
DX: M19.071 Primary osteoarthritis, right ankle and foot (principal); G89.18 Other acute postprocedural pain; M21.6X1 Other acquired deformities of right foot; E78.5 Hyperlipidemia, unspecified; E11.22 Type 2 diabetes mellitus with diabetic chronic kidney disease; I12.9 Hypertensive chronic kidney disease with stage 1 through stage 4 chronic kidney disease, or unspecified chronic kidney disease; N18.30 Chronic kidney disease, stage 3 unspecified; E07.9 Disorder of thyroid, unspecified; M19.90 Unspecified osteoarthritis, unspecified site; K21.9 Gastro-esophageal reflux disease without esophagitis; Z87.891 Personal history of nicotine dependence; Z79.4 Long term (current) use of insulin; Z79.899 Other long term (current) drug therapy; Z79.890 Hormone replacement therapy
CPT/HCPCS: 28730; 27687; 38220; 77002; 64447; 64445; 76942; 80053; C1713; J2250; J0330; J1100; J0690; J2405; J3010; J2795; J2704; J2001

== ENCOUNTER → 2023-03-04 | Outpatient (CLI) | payer BC ==
--- NOTE | 2023-03-05 15:45 | MM ---
Reason for Exam: Screening (asymptomatic). Patient History: Menarche at age 13. First Full-Term at age 20. Left ovary removed at age 31. Hysterectomy at age 31. Postmenopausal. Risk Values: Deena 5 year model risk: 0.9%. NCI Lifetime model risk: 5.9%. Tissue Density: There are scattered fibroglandular densities. Findings: Analyzed By CAD. Air and appears symmetrical. Benign vascular calcification is present bilaterally. No suspicious groups of microcalcifications, spiculated or lobular masses, architectural distortion or other secondary signs of malignancy are mammographically apparent. Overall Assessment: Benign, BI-RAD 2 Management: Screening Mammogram of both breasts in 1 year. A negative mammogram report should not preclude additional follow up of suspicious palpable abnormalities. Patient should continue monthly self breast exam. A clinical breast exam by your physician is recommended on an annual basis and results should be correlated with mammographic findings. Electronically signed and approved by: Gian Sanchez D.O. Radiologis
== END | disposition home or self-care (01) ==
LOC: RADMAMWWP 13:34
PROVIDERS: ATTEND Family Medicine
DX: Z12.31 Encounter for screening mammogram for malignant neoplasm of breast (principal); Z78.0 Asymptomatic menopausal state
CPT/HCPCS: 77067

== ENCOUNTER → 2023-05-08 | Outpatient (CLI) | payer BC ==
--- NOTE | 2023-05-08 13:08 | BD ---
EXAMINATION TYPE: Axial Bone Density DATE OF EXAM: 05/08/2023 CLINICAL HISTORY: 57 years old Female. ICD-10 CODE: Z78.0 ASYMPTOMATIC MENOPAUSAL STATE, N95.1 POST MENOPAUSAL S Height: 62in Weight: 209lb FRAX RISK QUESTIONS: History of Fracture in Adulthood: yes Secondary Osteoporosis: 1. Type 1 Diabetes: yes RISK FACTORS HISTORY OF: MEDICATIONS: Thyroid Medications: Which medication: Synthroid How Long: at least 20 years EXAM MEASUREMENTS: Bone mineral densitometry was performed using the [employer] System. Bone mineral density as measured about the Lumbar spine is: ----- L1-L4(G/cm2): 1.212 T Score Values are as follows: ----- L1: -0.5 ----- L2: 0.9 ----- L3: 0.1 ----- L4: 0.3 ----- L1-L4: 0.3 Z Score Values are as follows: ----- L1: -0.6 ----- L2: 0.8 ----- L3: 0.0 ----- L4: 0.2 ----- L1-L4: 0.2 First dexa at [facility] Bone mineral density about the R hip (g/cm2): 0.960 Bone mineral density about the L hip (g/cm2): 1.055 T Score values are as follows: -----R Neck: -0.7 -----L Neck: -0.1 -----R Total: -0.4 -----L Total: 0.4 Z Score values are as follows: -----R Neck: -0.3 -----L Neck: 0.3 -----R Total: -0.4 -----L Total: 0.4 FRAX%s: The graph provided illustrates a 18.7% chance for a major osteoporotic fx and a 0.4% chance f or the hips probability for fx in 10 years time. IMPRESSION: Normal (Values between +1 and -1 indicate normal bone mass). Consider repeating this study in 5 year s or sooner if there is some new clinical indication. NOTE: T-SCORE=SD OF THE YOUNG ADULT MEAN.
== END | disposition home or self-care (01) ==
LOC: RADBDWWP 11:24
PROVIDERS: ATTEND Obstetrics & Gynecology
DX: N95.1 Menopausal and female climacteric states (principal)
CPT/HCPCS: 77080

== ENCOUNTER → 2023-05-12 | Outpatient (CLI) | payer BC ==
--- NOTE | 2023-05-12 08:40 | US ---
EXAMINATION TYPE: US abdomen complete DATE OF EXAM: 05/12/2023 COMPARISON: 11/09/20 US CLINICAL INDICATION: Female, 57 years old with history of N18.4 CHRONIC KIDNEY DISEASE, STAGE 4 (BARBARA RE); CKD TECHNIQUE: Multiple sonographic images of the abdomen are obtained. FINDINGS: EXAM MEASUREMENTS: Liver Length: 14.3 cm Gallbladder Wall: Surgically absent CBD: 0.9 cm Spleen: 11.0 cm Right Kidney: 9.6x4.5x3.9 cm Left Kidney: 11.3x4.2x3.8 cm Pancreas: mostly obscured by bowel gas Liver: increased attenuation . Gallbladder: Surgically absent Evidence for sonographic Yang's sign: No CBD: dilated Spleen: wnl Right Kidney: thinning cortex No hydronephrosis or masses seen Left Kidney: thinning cortex No hydronephrosis or masses seen Upper IVC: wnl Abd Aorta: wnl exam very limited by bowel gas, body habitus, and rib shadowing The liver is homogenous. The intrahepatic portion of the IVC and proximal abdominal aorta are within normal limits. The visualized portions of the pancreas are homogenous. The spleen is unremarkable. Kidneys are symmetric and free of hydronephrosis. No renal lesions are seen. IMPRESSION: 1. Medical renal disease with atrophic kidneys. 2. Increased echotexture to liver correlate for hepatocellular disease.
== END | disposition home or self-care (01) ==
LOC: RADUSWWP 07:27
PROVIDERS: ATTEND Family Medicine
DX: N26.1 Atrophy of kidney (terminal) (principal); N18.4 Chronic kidney disease, stage 4 (severe); K76.89 Other specified diseases of liver; Z90.49 Acquired absence of other specified parts of digestive tract
CPT/HCPCS: 76700

== ENCOUNTER 2024-03-05 08:06 | Day surgery (SDC) | payer BC ==
[2024-03-04 10:51] VITALS: BMI 38.7
[2024-03-05 08:37] VITALS: RESP 16; TEMP 97
[2024-03-05] MEDS: IV FLUID CONTINUATION 1,000 ML IV ONE ×2 (08:39→09:28)
[2024-03-05] MEDS: LACTATED RINGERS 1,000 ML IV SCH (08:40)
[2024-03-05 08:53] LABS: Glucose,Whole Blood 148 mg/dL (70-110)
[2024-03-05] MEDS ORDERED: PROPOFOL 10 MG/ML 20 ML VIAL IV ONE (09:30)
[2024-03-05] MEDS ORDERED: LIDOCAINE 1% INJ 10MG/ML (20 ML MDV) ONE (09:30)
--- NOTE | 2024-03-05 09:51 | P.PCN ---
Date of Procedure: 03/05/24 Procedure(s) Performed: BRIEF HISTORY: Patient is a 58-year-old pleasant white female scheduled for an elective colonoscopy as a part of evaluation of history of colon polyps and family history of colon cancer. Her mother was diagnosed with colon cancer at age 70. PROCEDURE PERFORMED: Colonoscopy with snare polypectomy. PREOPERATIVE DIAGNOSIS: History of colon polyps and family history of colon cancer. IV sedation per Anesthesia. PROCEDURE: After informed consent was obtained, the patient, was brought into the endoscopy unit. IV sedation was administered by Anesthesia under continuous monitoring. Digital rectal examination was normal. Initially the Olympus CF-160 flexible video colonoscope was then inserted in the rectum, gradually advanced into the cecum without any difficulty. Careful examination was performed as the scope was gradually being withdrawn. Ileocecal valve and the appendiceal orifice were visualized and appeared normal. Prep was excellent. Mucosa of the cecum, ascending colon, normal. The transverse colon there was a 8 mm polyp that was removed by cold snare polypectomy. In the descending colon there was a 4 mm polyp that was removed by cold snare polypectomy. Rest of the transverse colon, descending colon, sigmoid colon, and rectum appeared normal. Retroflexion was performed in the rectum and no lesions were seen. The patient tolerated the procedure well. IMPRESSION: 8 mm descending colon polyp status post cold snare polypectomy 4 mm transverse colon polyp status post cold snare polypectomy RECOMMENDATIONS: Findings of this examination were discussed with the patient as well as her family. She was advised to follow-up with the biopsy results. I f the biopsy reveals adenoma she can have repeat colonoscopy in 5 years..
[2024-03-05 10:07] LABS: Glucose,Whole Blood 127 mg/dL (70-110)
[2024-03-05 10:14] VITALS: BP 108/66; PULSE 86
== END 2024-03-05 10:26 | disposition home or self-care (01) ==
LOC: ORWHC2ENDO 08:06
PROVIDERS: ATTEND Internal Medicine Gastroenterology
DX: Z86.0100 Personal history of colon polyps, unspecified (principal); K63.5 Polyp of colon; Z80.0 Family history of malignant neoplasm of digestive organs; I10 Essential (primary) hypertension; E78.5 Hyperlipidemia, unspecified; E11.9 Type 2 diabetes mellitus without complications; M19.90 Unspecified osteoarthritis, unspecified site; E07.9 Disorder of thyroid, unspecified; N28.9 Disorder of kidney and ureter, unspecified; K21.9 Gastro-esophageal reflux disease without esophagitis; Z79.890 Hormone replacement therapy; Z79.84 Long term (current) use of oral hypoglycemic drugs; Z79.4 Long term (current) use of insulin; Z79.899 Other long term (current) drug therapy
CPT/HCPCS: 88305; 45385; J2003; J2704